=== PATIENT | female | born 1945 | race Caucasian/White ===

== ENCOUNTER 2018-01-04 01:20 | Inpatient (IN) | payer OTHER, SELFPAY ==
[2018-01-04] VITALS (26 sets, daily range): BP systolic 104–172; BP diastolic 44–112; PULSE 62–128; RESP 11–22; TEMP 36–38.3; O2SAT 87–99; BMI 26.6; BMI 30.2
--- NOTE | 2018-01-04 01:31 | DI.RAD.S_ITS ---
PROCEDURE: XR CHEST 1V INDICATIONS: rapid AFib TECHNIQUE: One view of the chest was acquired. COMPARISON: None. FINDINGS: Surgical changes and devices: Surgical clips in the thyroid bed. Lungs and pleura: No pleural effusions or pneumothorax. Lungs are clear. Mediastinum: Mediastinal contours appear normal. Heart size is normal. Bones and chest wall: No suspicious bony lesions. Overlying soft tissues appear unremarkable. IMPRESSION: No acute cardiopulmonary disease. Dictated by: Win Stevenson M.D. on 01/04/2018 at 7:16 Approved by: Win Stevenson M.D. on 01/04/2018 at 7:17
--- NOTE | 2018-01-04 01:37 | PC.NURSE ---
this nurse witness patient giving permission for provider to take a photo with cell phone and text to ortho surgeon.
--- NOTE | 2018-01-04 01:57 | ED_ITS ---
HPI - Extremity Problem General Chief complaint: Extremity Injury, Upper Stated complaint: Pain S/P Wrist Surgery Time Seen by Provider: 01/04/18 01:25 Source: EMS Mode of arrival: EMS Limitations: no limitations History of Present Illness HPI Narrative: 72-year-old female with history of hypertension, hypothyroid, and diverticulosis presents to the emergency department with a chief complaint of a few days of increasing left hand pain. She denies systemic symptoms such as dizziness, lightheadedness or weakness. She denies any fever or chills. Patient had surgery by Dr. Chu at [facility] on December 10 for repair of tendons in her left hand. She had been doing quite well until a few days ago when she started developing increasing pain and now has purulent drainage from a dehisced part of the wound. Patient denies chest pain or shortness of breath. She is not dizzy or lightheaded. She denies any palpitations MD Complaint: extremity pain and extremity swelling Onset (ago): day(s) Pain Consistency: constant Location: left Quality: stabbing and aching Radiation: none Relieving factors: nothing Exacerbating factors: range of motion and palpation Associated symptoms: denies other symptoms Related Data Home Medications Medication Instructions Recorded Confirmed CHOLECALCIFEROL (VITAMIN D3) 400 iu PO #0 04/23/12 (VITAMIN D) POTASSIUM CHLORIDE (KLOR-CON M10) 20 meq PO BIDCC #0 04/23/12 atenolol 50 mg PO BID #0 04/23/12 estradiol [Estrace] 1.5 mg PO QDAY #0 04/23/12 spironolactone [Aldactone] 50 mg PO QDAY #0 04/23/12 Previous Rx's Medication Instructions Recorded azithromycin [Zithromax] 250 mg PO QDAY #6 tab 06/03/17 methylprednisolone 21 tab PO SEE INSTRUCTIONS #1 pac 06/03/17 Allergies Allergy/AdvReac Type Severity Reaction Status Date / Time etodolac [ETODOLAC] Allergy Unknown hives Verified 01/04/18 01:35 BEE STINGS Allergy Unknown Uncoded 01/04/18 01:35 Review of Systems Review of Systems All systems reviewed & are unremarkable except as noted in HPI and below Constitutional Denies chills, Denies fever(s), Denies lethargy and Denies weakness Eyes Denies change in vision, Denies eye discharge, Denies irritation and Denies loss of vision ENT Ears, Nose, Mouth, and Throat: Denies change in voice, Denies neck pain and Denies sore throat Cardiovascular Denies chest pain, Denies irregular heart rhythm, Denies lightheadedness, Denies palpitations, Denies dyspnea, Denies dyspnea on exertion and Denies orthopnea Respiratory Denies cough, Denies dyspnea, Denies dyspnea on exertion and Denies wheezing Gastrointestinal Gastrointestinal: Denies abdominal pain, Denies change in bowel habits, Denies diarrhea, Denies nausea and Denies vomiting Genitourinary Denies hematuria, Denies flank pain, Denies urinary incontinence and Denies urinary urgency Musculoskeletal Denies neck pain Integumentary/Breasts Denies pruritus, Denies erythema, Denies rash, Reports skin pain, Reports skin swelling, Reports sores and Reports wounds Neurologic Denies confusion, Denies loss of vision and Denies weakness Psychiatric Denies anxiety, Denies confusion, Denies depression, Denies homicidal ideation and Denies suicidal ideation Endocrine Denies palpitations Hematologic/Lymphatic Denies easy bruising Allergic/Immunologic Denies wheezing [facility] Social History Smoking Status: Never smoker Exam Narrative Exam Narrative: 72-year-old female appears quite uncomfortable, clutching her left hand Initial Vital Signs Initial Vital Signs: Vital Signs Temperature 98.7 F 01/04/18 01:28 Pulse Rate 107 H 01/04/18 01:28 Respiratory Rate 22 01/04/18 01:28 Blood Pressure 172/112 H 01/04/18 01:28 Pulse Oximetry 99 01/04/18 01:28 Const General: cooperative, well developed, acute distress and anxious Nutritional Appearance: well nourished Orientation: alert, awake, oriented x3 and not confused [facility] Head: normal to inspection Ears: hearing grossly normal bilaterally Nose: external nose normal Face and sinus: normal facial exam Eyes Pupils: PERRL EOM: EOM intact bilaterally Neck Neck: normal visual inspection, trachea midline, No lymphadenopathy, No midline deformity and No JVD Lymphatic: No lymphedema Resp Effort & Inspection: normal respiratory effort, able to speak in complete sentences, no respiratory distress and no use of accessory muscles Auscultation: clear to auscultation bilaterally, no rales, no rhonchi and no wheezes Cardio Rate: tachycardic Rhythm: abnormal rhythm GI Inspection: non-distended Palpation: soft, no hepatosplenomegaly, No guarding, No pulsatile mass and No tender Auscultation: normal bowel sounds Back/Spine/Pelvis Back: No CVA tenderness Cervical Spine: cervical ROM normal and No pain with cervical ROM Thoracic/Lumbar Spine: thoracic and lumbar spine normal to inspection Skin General: erythema, induration and warm Neuro General: alert, oriented x3, gait normal and no focal motor deficits Speech: speech normal Extrem Left upper extremity: hand (Patient has notable erythema and swelling on the dorsum of the left hand overlying the 1st metacarpal. The incision has a small area of dehiscence that is draining purulent fluid which has been cultured and sent to lab. She has tenderness on the dorsum of the hand and on palpation of the palmar schwab) Course Orders Ordered: ED Orders 01/04/18 EKG-12 Lead Routine 01/04/18 01:31 XR chest 1V Stat Wound Culture and Gram Stain Stat 01/04/18 01:55 Blood Culture Stat C-Reactive Protein Quant Stat Complete Blood Count AUTO DIFF Stat Comprehensive Metabolic Panel Stat Erythrocyte Sedimentation Rate Stat Lactate (Lactic Acid) Stat Procalcitonin Stat Troponin I Stat Diltiazem HCl 125 mg/ Dextrose 125 mls @ 5 mls/hr IV TITRATE RIVERA; Protocol Discontinued Medications Diltiazem HCl (Cardizem) 20 mg IV NOW ONE Stop: 01/04/18 01:55 Last Admin: 01/04/18 02:07 Dose: 20 mg Hydromorphone HCl (Dilaudid) 1 mg IV NOW ONE Stop: 01/04/18 02:56 Cefazolin Sodium/Dextrose (Ancef) 1 gm in 50 mls @ 200 mls/hr IV NOW ONE Stop: 01/04/18 02:07 Last Admin: 01/04/18 02:45 Dose: 200 mls/hr Sodium Chloride (Normal Saline 0.9%) 1,000 mls @ 1,000 mls/hr IV BOLUS ONE Stop: 01/04/18 02:52 Last Admin: 01/04/18 02:40 Dose: 1,000 mls/hr Reevaluation(s) Reevaluation #1: Cardizem 10 mg IV push resulting in conversion of rapid AFib to a sinus rhythm in the 90s Reevaluation #2: While on the phone attempting to admit the patient to the floor patient started creeping back up into 120 the 130s, decision to place patient in the intensive care for the duration of the evening with a Cardizem drip at 5 Consultations Consultation #1: Call to Orthopedics soon after patient's arrival and there is quick agreement that the patient will need to return to the operating room. They request NPO status, Ancef and admission to hospitalist given new onset of atrial fibrillation Consultation #2: Dr. Gustafson happy to accept Time: 02:55 Vital Signs - 8 hr 01/04/18 01:28 Temperature 98.7 F Pulse Rate 107 H Respiratory Rate 22 Blood Pressure 172/112 H Pulse Oximetry 99 MDM - Extremity (Nontraumatic) Lab Data Attestation: I reviewed the patient's lab results. Result diagrams: 01/04/18 01:55 01/04/18 01:55 Lab Results 01/04/18 01/04/18 01/04/18 Range/Units 01:55 01:55 01:55 WBC 10.6 (4.5-11.0) X10^3/uL RBC 4.26 (4.0-5.2) X10^6/uL Hgb 13.5 (12.0-16.0) g/dL Hct 39.7 (36-46) % MCV 93.2 (80-100) fL MCH 31.7 (26-34) PG MCHC 34.1 (30-36) % RDW 12.0 (11.6-14.8) % Plt Count 279 (150-400) X10^3/uL Neut % (Auto) 53.5 (50-75) % Lymph % (Auto) 33.1 (25-40) % [place] % (Auto) 9.6 (3-14) % Eos % (Auto) 2.4 (2-4) % Baso % (Auto) 1.4 (0-2) % Neut # (Auto) 5700 (8019-3851) /uL ESR 79 H (0-20) MM/HR Sodium (137-145) mmol/L Potassium (3.4-5.1) mmol/L Chloride (98-107) mmol/L Carbon Dioxide (22-32) mmol/L BUN (7-17) mg/dL Creatinine (0.52-1.04) mg/dL Estimated GFR (>60) mL/min BUN/Creatinine Ratio (6-22) Glucose (80-110) mg/dL Lactate 2.6 H (0.7-2.1) mmol/L Calcium (8.4-10.2) mg/dL Total Bilirubin (0.2-1.3) mg/dL AST (14-36) IU/L ALT (9-52) IU/L Alkaline Phosphatase (38-126) U/L Troponin I (0.01-0.034) ng/mL C-Reactive Protein (<1.0) mg/dL Total Protein (6.3-8.2) g/dL Albumin (3.5-5.0) g/dL Globulin (1.7-4.1) g/dL Albumin/Globulin Ratio (1.0-2.8) Procalcitonin < 0.05 (<0.5) ng/mL 01/04/18 01/04/18 Range/Units 01:55 01:55 WBC (4.5-11.0) X10^3/uL RBC (4.0-5.2) X10^6/uL Hgb (12.0-16.0) g/dL Hct (36-46) % MCV (80-100) fL MCH (26-34) PG MCHC (30-36) % RDW (11.6-14.8) % Plt Count (150-400) X10^3/uL Neut % (Auto) (50-75) % Lymph % (Auto) (25-40) % [place] % (Auto) (3-14) % Eos % (Auto) (2-4) % Baso % (Auto) (0-2) % Neut # (Auto) (7467-2723) /uL ESR (0-20) MM/HR Sodium 139 (137-145) mmol/L Potassium 3.8 (3.4-5.1) mmol/L Chloride 98 (98-107) mmol/L Carbon Dioxide 30 (22-32) mmol/L BUN 14 (7-17) mg/dL Creatinine 0.80 (0.52-1.04) mg/dL Estimated GFR > 60.0 (>60) mL/min BUN/Creatinine Ratio 17.5 (6-22) Glucose 100 (80-110) mg/dL Lactate (0.7-2.1) mmol/L Calcium 9.3 (8.4-10.2) mg/dL Total Bilirubin 0.7 (0.2-1.3) mg/dL AST 19 (14-36) IU/L ALT 21 (9-52) IU/L Alkaline Phosphatase 68 (38-126) U/L Troponin I < 0.012 (0.01-0.034) ng/mL C-Reactive Protein 8.6 H (<1.0) mg/dL Total Protein 7.8 (6.3-8.2) g/dL Albumin 4.2 (3.5-5.0) g/dL Globulin 3.6 (1.7-4.1) g/dL Albumin/Globulin Ratio 1.2 (1.0-2.8) Procalcitonin (<0.5) ng/mL ECG Data Attestation EKG: I personally reviewed and interpreted this ECG as follows: Prior ECG tracings: not available for review Interpretation: EKG1: Afib w/RVR at 127. No ischemia. EKG2: sinus arrhythmia at 110. Discharge Plan Departure Patient Disposition: Admitted As Inpatient Clinical Impression: Atrial fibrillation with rapid ventricular response, Infected surgical wound
[2018-01-04] MEDS: dilTIAZem 25 MG/5 ML SDV 20 MG IV (02:07)
[2018-01-04 02:31] LABS: Add Manual Diff / Slide Review NO; Basophils Percent Auto 1.4 % (0-2); Eosinophils Percent Auto 2.4 % (2-4); Hematocrit 39.7 % (36-46); Hemoglobin 13.5 g/dL (12.0-16.0); Lymphocytes Percent Auto 33.1 % (25-40); Mean Corpuscular HGB Conc 34.1 % (30-36); Mean Corpuscular Hemoglobin 31.7 PG (26-34); Mean Corpuscular Volume 93.2 fL (80-100); Monocytes Percent Auto 9.6 % (3-14); Neutrophils Absolute Auto 5700 /uL (3000-5900); Neutrophils Percent Auto 53.5 % (50-75); Platelet Count 279 X10^3/uL (150-400); Red Blood Cell Count 4.26 X10^6/uL (4.0-5.2); White Blood Cell Count 10.6 X10^3/uL (4.5-11.0)
[2018-01-04 02:32] LABS: Alanine Aminotransferase 21 IU/L (9-52); Albumin 4.2 g/dL (3.5-5.0); Albumin Globulin Ratio 1.2 (1.0-2.8); Alkaline Phosphatase 68 U/L (38-126); Aspartate Aminotransferase 19 IU/L (14-36); BUN Creatinine Ratio 17.5 (6-22); Bilirubin Total 0.7 mg/dL (0.2-1.3); Blood Urea Nitrogen 14 mg/dL (7-17); Calcium 9.3 mg/dL (8.4-10.2); Carbon Dioxide 30 mmol/L (22-32); Chloride 98 mmol/L (98-107); Estimated Glomerular Filt Rate > 60.0 mL/min (>60); Globulin 3.6 g/dL (1.7-4.1); Glucose 100 mg/dL (80-110); HEMOLYSIS < 15 (0-50); Potassium 3.8 mmol/L (3.4-5.1); Sodium 139 mmol/L (137-145); Total Protein 7.8 g/dL (6.3-8.2)
[2018-01-04 02:34] LABS: Lactate (Lactic Acid) 2.6 mmol/L (0.7-2.1)
[2018-01-04 02:36] LABS: C-Reactive Protein Quant 8.6 mg/dL (<1.0)
[2018-01-04] MEDS: SODIUM CHLORIDE 0.9% 1,000 ML 1000 ML IV (02:40)
[2018-01-04 02:45] LABS: Troponin I < 0.012 ng/mL (0.01-0.034)
[2018-01-04] MEDS: CEFAZOLIN 1 GM/50 ML FROZ.PIGGY IV ×3 (02:45→16:43)
[2018-01-04 02:46] LABS: Erythrocyte Sedimentation Rate 79 MM/HR (0-20)
[2018-01-04 02:51] LABS: Procalcitonin < 0.05 ng/mL (<0.5)
[2018-01-04] MEDS: HYDROMORPHONE 1 MG INJ IV (03:03)
[2018-01-04] MEDS: dilTIAZem 125 MG in DEXTROSE 5 % IN WATER 100 ML IV (03:40)
[2018-01-04] MEDS: SODIUM CHLORIDE 0.9% 1,000 ML 125 ML IV (04:54)
[2018-01-04 06:10] LABS: Reflexed Lactate in 2 Hours Y
[2018-01-04 06:24] LABS: Lactate 2HR (Lactic Acid Rflx) 0.7 mmol/L (0.7-2.1)
[2018-01-04] MEDS: MORPHINE 2 MG/ML INJ 1 MG IV (09:15)
--- NOTE | 2018-01-04 10:11 | PM.HP.1 ---
History of Present Illness Date Patient Seen: 01/04/18 Time Patient Seen: 10:15 Chief complaint: Pain S/P Wrist Surgery Narrative: Patient is a 72-year-old female admitted to the to the emergency room through the emergency room last evening with increased illness severe infection and recent surgery site with markedly elevated CRP and sed rate. Patient found abnormal white count negative procalcitonin. Patient was also found to be in intermittent atrial fibrillation. While she had been gradually feeling worse since her surgery she had had not had any chest pain significant shortness of breath PND orthopnea or sense of palpitations. She has no past history of atrial fibrillation or significant coronary artery disease. Does have a history of elevated lipids which she has been resistant to taking medications for. Overall prior to this episode been healthy active woman who is young for her stated age. In and is here this morning noted to be slightly confused disoriented can't remember medications. Still in irregular heart rhythm with rate up to 108 responding well to diltiazem drip and maintain her blood pressure. Left hand where her surgery is which she is unable to remember exactly what surgery happened looks as though this was joint procedure on her left hand quite reddened purulent extremely tender mobile decreased sensations at the tips of fingers Patient History Family & Social History Social History: household members none Prior Living Arrangements House Safety & Behavioral: Feels Safe in Current Yes Environment Been Physically Hurt or No Threatened By a Person Suicidal Ideation Description None Tobacco & Substance use: Smoking Status Never smoker alcohol intake current alcohol intake frequency a few times a week Substance Use Type does not use Meds Home Medications Medication Instructions Recorded Confirmed Type CHOLECALCIFEROL (VITAMIN D3) 400 iu PO #0 04/23/12 History (VITAMIN D) POTASSIUM CHLORIDE (KLOR-CON M10) 20 meq PO BIDCC #0 04/23/12 History atenolol 50 mg PO BID #0 04/23/12 History estradiol [Estrace] 1.5 mg PO QDAY #0 04/23/12 History spironolactone [Aldactone] 50 mg PO QDAY #0 04/23/12 History azithromycin [Zithromax] 250 mg PO QDAY #6 tab 06/03/17 Rx methylprednisolone 21 tab PO SEE INSTRUCTIONS #1 pac 06/03/17 Rx Allergies Allergy/AdvReac Type Severity Reaction Status Date / Time etodolac [ETODOLAC] Allergy Unknown hives Verified 01/04/18 01:35 BEE STINGS Allergy Unknown Uncoded 01/04/18 01:35 Review of Systems Review of Systems Patient has her routine complains of weakness feeling achy sore all over confused disoriented and in severe pain in her left hand. No visual change or difficulty swallowing No shortness of breath PND cough significant edema No chest pain a sense of palpitations significant edema PND had dyspnea on exertion or past history of arrhythmia Abdomen nontender no hepatosplenomegaly or mass no nausea vomiting or diarrhea she does no history of urinary frequency burning dysuria Musculoskeletal left hand at incision site with purulence redness markedly decreased range of motion Neuro shows patient to be slightly confused and disoriented but moving things symmetrically speech is clear hematologic patient denies any bleeding bruising melena Exam Vital Signs (past 8 hours): - 01/04/18 03:38 01/04/18 03:40 01/04/18 04:00 Temperature 101 F H Pulse Rate 123 H 128 H Respiratory Rate 19 Blood Pressure 125/61 H 148/67 H 125/61 H Pulse Oximetry 94 01/04/18 05:00 01/04/18 06:00 01/04/18 07:52 Temperature 97.9 F Pulse Rate 106 H 94 H 108 H Respiratory Rate 17 18 16 Blood Pressure 122/59 H 109/66 141/77 H Pulse Oximetry 98 Oxygen Delivery Method Room Air Narrative Exam Narrative: PERRLA EOMs intact Neck without mass or adenopathy Lungs clear to auscultation percussion Cardiovascular exam shows no murmur no S3 slightly irregular with rate at about 108 consistent with AFib. No significant dependent edema Abdomen nontender no hepatosplenomegaly mass rebound or guarding Back without any soreness bruising CVA tenderness Skin shows definite cellulitis infection in the skin over her left thumb with a P MCP joint do significant significantly decreased range of motion and very tender Neuro is intact and symmetrical to sensory and motor speech is clear patient is a little confused and disoriented which is different than her baseline but symmetrically so Objective Labs Result Diagrams: 01/04/18 01:55 01/04/18 01:55 Labs: Laboratory Results - last 24 hr 01/04/18 01/04/18 01/04/18 01:55 01:55 01:55 WBC 10.6 RBC 4.26 Hgb 13.5 Hct 39.7 MCV 93.2 MCH 31.7 MCHC 34.1 RDW 12.0 Plt Count 279 Neut % (Auto) 53.5 Lymph % (Auto) 33.1 [place] % (Auto) 9.6 Eos % (Auto) 2.4 Baso % (Auto) 1.4 Neut # (Auto) 5700 ESR 79 H Sodium Potassium Chloride Carbon Dioxide BUN Creatinine Estimated GFR BUN/Creatinine Ratio Glucose Lactate 2.6 H Calcium Total Bilirubin AST ALT Alkaline Phosphatase Troponin I C-Reactive Protein Total Protein Albumin Globulin Albumin/Globulin Ratio Procalcitonin < 0.05 Nasal Screen MRSA (PCR) 01/04/18 01/04/18 01/04/18 01:55 01:55 03:30 WBC RBC Hgb Hct MCV MCH MCHC RDW Plt Count Neut % (Auto) Lymph % (Auto) [place] % (Auto) Eos % (Auto) Baso % (Auto) Neut # (Auto) ESR Sodium 139 Potassium 3.8 Chloride 98 Carbon Dioxide 30 BUN 14 Creatinine 0.80 Estimated GFR > 60.0 BUN/Creatinine Ratio 17.5 Glucose 100 Lactate Calcium 9.3 Total Bilirubin 0.7 AST 19 ALT 21 Alkaline Phosphatase 68 Troponin I < 0.012 C-Reactive Protein 8.6 H Total Protein 7.8 Albumin 4.2 Globulin 3.6 Albumin/Globulin Ratio 1.2 Procalcitonin Nasal Screen MRSA (PCR) Negative for mrsa 01/04/18 05:30 WBC RBC Hgb Hct MCV MCH MCHC RDW Plt Count Neut % (Auto) Lymph % (Auto) [place] % (Auto) Eos % (Auto) Baso % (Auto) Neut # (Auto) ESR Sodium Potassium Chloride Carbon Dioxide BUN Creatinine Estimated GFR BUN/Creatinine Ratio Glucose Lactate 0.7 Calcium Total Bilirubin AST ALT Alkaline Phosphatase Troponin I C-Reactive Protein Total Protein Albumin Globulin Albumin/Globulin Ratio Procalcitonin Nasal Screen MRSA (PCR) Assessment & Plan Plan: Assessment/Plan Narrative: Assessment 1. Most probable infection at surgery site for some procedure. Patient has had solution several days of worsening pain redness and becoming increasingly confused. White count is only 10 procalcitonin negative but sed rate is is near 40 and CRP is 9. Wound looks severely complicated by infection. Orthopedic surgeon is taking patient to surgery to address this. Will continue on antibiotics Assessment 2. New onset atrial fibrillation with unclear etiology. Cardiac enzymes negative and EKG shows no ST or acute ischemic changes. No past history of this. Patient is probably in this because of toxicity of her infection as noted above. Has good rate control blood pressure control and oxygen saturations on current diltiazem for rhythm and rate control. Her fib has been intermittent since her admission here. Will see how things look after her surgical therapy for her hand and continue current rate control meds Assessment 3. Hypertension patient's chronic hypertension meds reviewed will see how her pressure looks and which she needs after surgical procedure and will continue monitor blood pressure closely. Assessment 4. History of hyperlipidemia patient has been resistant to medications but is fairly elevated numbers for that need to be addressed for long-term health maintenance Assessment 5. Patient has had past history of hypokalemia is not hypokalemic now so will not reintroduce potassium replacement on unless we see that evolve over her subsequent follow-up labs. Quality VTE Deep Vein Thrombosis/Pulmonary Embolism Present on Admission: No
[2018-01-04] MEDS: LACTATED RINGERS 1,000 ML 42 ML IV (10:15)
--- NOTE | 2018-01-04 10:19 | PC.NURSE ---
Addendum entered by Mateo Argueta R.N. 01/04/18 14:20: Updated son, Ahmet, via telephone per pt request. Administered PO meds including metoprolol as ordered. Dilt gtt weaned to off. Pt currently SR 68. Intermittently dozing. States pain well controlled as long as she doesn't move L Hand. Original Note: Addendum entered by Mateo Argueta R.N. 01/04/18 12:52: Rec'd pt from PACU to [id number]. AO x3 but drowsy. Able to move fingers and thumb of L Hand. Reports soreness. Cap refill less than 3 sec. Gauze dsg to L hand is CDI. Per report, murray drain to site. Bradypneic with sleep 10-12 RR and associated desat to 87% on RA. Pt is easily rousable to verbal stimuli. Applied O2 at 2L for SPO2 97%. Will wean as able. Rhythm is intermittently A fib CVR and SR with bigeminal or frequent PACs. Dilt gtt continues to infuse at 5 mg/hr. Will give PO meds when available. Care ongoing. Original Note: Bedside report to JOHNNY Bermeo. Dr. Gustafson also at bedside to assess pt. Pt left to pre op 1015 with RN and dilt gtt infusing at 5mg/hr and stable VS. Pt requested I update her son, Ahmet, via telephone. Called and left voice message to return phone call.
--- NOTE | 2018-01-04 10:21 | CM.DANOTE ---
Patient is a 72 year old female who was admitted on 01/04/18 for Pain Wrist Surg. Pt has [facility] for insurance and her PCP is Dr. Gustafson. EMR was reviewed. Per MD, pt had recent surgery on her wrist at [facility] and per Consult is now recommending further surgical procedure. Per RN, pt currently NPO for likely surgery today. SW met bedside with pt and explained role and pt confirmed that she lives at home in [place] alone and has local supportive friends who can assist if needed. Pt is Independent at baseline and drives and denies any hx of HH or SNF. Pt states she does not have DPOA and is currently not interested in DPOA pwk. Pt does not anticipate any SW needs at d/c and preference is to d/c home with supportive friends to assist if needed when medically stable. Plan: SW to follow after surgery to determine likely d/c home when medically stable and any further identified discharge planning needs. LIAT Gregorio Discharge Planning/Care Management CM Discharge Assessment Start: 01/04/18 10:20 Freq: Status: Active Protocol: Document 01/04/18 10:20 BF (Rec: 01/04/18 10:21 [id number]) Discharge Planning Assessment Assigned [employer] History Provided By Patient Has Patient been admitted in last 30 No days? Is this patient on Medicare? Yes Is the admit diagnosis the same? Yes Prior Living Arrangements House Household Members none Type of transporation used prior to Drives own vehicle admit Independent with ADL's Yes Is patient alert and oriented? Yes Needs Assistance With Home Chores / Shopping Caregiver for Another No Referrals Initiated None needed Comment To follow after surgery to better determine d/c planning needs Discharge Plan Home Transportation Arrangement supportive friends can assist in transport Review Status In Process Next Review Type Discharge Review
--- NOTE | 2018-01-04 11:07 | PM.CN ---
History of Present Illness Date Patient Seen: 01/04/18 Time Patient Seen: 11:07 Chief complaint: Pain S/P Wrist Surgery Reason for consult: left hand post op infection Requesting provider: Wang Foster Narrative: Ms. Holt had left hand surgery [address] Chaudhary. She has been having redness and swelling for about 1 week with mild drainage. Started 2 days ago her drainage increased to copious amount. She presented to the ED and orthopedic service was consulted. [facility] Social History household members: none Smoking Status: Never smoker alcohol intake: current Meds Home Medications Medication Instructions Recorded Confirmed Type potassium chloride 20 meq PO BID #0 04/23/12 01/04/18 History spironolactone [Aldactone] 50 mg PO QDAY #0 04/23/12 History citalopram DAILY 01/04/18 History estradiol 0.5 tab PO DAILY 01/04/18 01/04/18 History hydroxyzine pamoate 1 - 2 cap PO DAILY 01/04/18 01/04/18 History levothyroxine 1 tab PO DAILY 01/04/18 01/04/18 History metoprolol tartrate 1 tab PO BID 01/04/18 01/04/18 History mometasone 1 applic TOPICAL BID 01/04/18 01/04/18 History oxycodone-acetaminophen 1 - 2 tab PO Q4-6H PRN 01/04/18 01/04/18 History Allergies Allergy/AdvReac Type Severity Reaction Status Date / Time etodolac [ETODOLAC] Allergy Unknown hives Verified 01/04/18 01:35 BEE STINGS Allergy Unknown Uncoded 01/04/18 01:35 Review of Systems Review of Systems All systems reviewed & are unremarkable except as noted in HPI and below Exam Vital Signs (past 8 hours): - 01/04/18 03:38 01/04/18 03:40 01/04/18 04:00 Temperature 101 F H Pulse Rate 123 H 128 H Respiratory Rate 19 Blood Pressure 125/61 H 148/67 H 125/61 H Pulse Oximetry 94 01/04/18 05:00 01/04/18 06:00 01/04/18 07:52 Temperature 97.9 F Pulse Rate 106 H 94 H 108 H Respiratory Rate 17 18 16 Blood Pressure 122/59 H 109/66 141/77 H Pulse Oximetry 98 01/04/18 10:22 01/04/18 10:30 01/04/18 10:31 Temperature 99.4 F Pulse Rate 94 H 88 Respiratory Rate 15 15 Blood Pressure 132/80 H 115/70 Pulse Oximetry 97 88 L 93 01/04/18 10:40 Temperature Pulse Rate 88 Respiratory Rate 15 Blood Pressure 127/71 H Pulse Oximetry 99 Oxygen Delivery Method Nasal Cannula Oxygen Flow Rate 2 Extrem Other: left wrist incision with erythema, yellow purulent drainage through entire incision, pain with movement and palpation of the CMC and IP joint of the left thumb. Objective Labs Result Diagrams: 01/04/18 01:55 01/04/18 01:55 Labs: Laboratory Results - last 24 hr 01/04/18 01/04/18 01/04/18 01:55 01:55 01:55 WBC 10.6 RBC 4.26 Hgb 13.5 Hct 39.7 MCV 93.2 MCH 31.7 MCHC 34.1 RDW 12.0 Plt Count 279 Neut % (Auto) 53.5 Lymph % (Auto) 33.1 Davie % (Auto) 9.6 Eos % (Auto) 2.4 Baso % (Auto) 1.4 Neut # (Auto) 5700 ESR 79 H Sodium Potassium Chloride Carbon Dioxide BUN Creatinine Estimated GFR BUN/Creatinine Ratio Glucose Lactate 2.6 H Calcium Total Bilirubin AST ALT Alkaline Phosphatase Troponin I C-Reactive Protein Total Protein Albumin Globulin Albumin/Globulin Ratio Procalcitonin < 0.05 Nasal Screen MRSA (PCR) 01/04/18 01/04/18 01/04/18 01:55 01:55 03:30 WBC RBC Hgb Hct MCV MCH MCHC RDW Plt Count Neut % (Auto) Lymph % (Auto) Davie % (Auto) Eos % (Auto) Baso % (Auto) Neut # (Auto) ESR Sodium 139 Potassium 3.8 Chloride 98 Carbon Dioxide 30 BUN 14 Creatinine 0.80 Estimated GFR > 60.0 BUN/Creatinine Ratio 17.5 Glucose 100 Lactate Calcium 9.3 Total Bilirubin 0.7 AST 19 ALT 21 Alkaline Phosphatase 68 Troponin I < 0.012 C-Reactive Protein 8.6 H Total Protein 7.8 Albumin 4.2 Globulin 3.6 Albumin/Globulin Ratio 1.2 Procalcitonin Nasal Screen MRSA (PCR) Negative for mrsa 01/04/18 05:30 WBC RBC Hgb Hct MCV MCH MCHC RDW Plt Count Neut % (Auto) Lymph % (Auto) Davie % (Auto) Eos % (Auto) Baso % (Auto) Neut # (Auto) ESR Sodium Potassium Chloride Carbon Dioxide BUN Creatinine Estimated GFR BUN/Creatinine Ratio Glucose Lactate 0.7 Calcium Total Bilirubin AST ALT Alkaline Phosphatase Troponin I C-Reactive Protein Total Protein Albumin Globulin Albumin/Globulin Ratio Procalcitonin Nasal Screen MRSA (PCR) Assessment & Plan Plan: Assessment/Plan Narrative: Left hand post op infection with purulent drainage. After inform consent was obtained, patient was taken to the OR for emergent incision and drainage and irrigation and debridement. Patient was admitted to ICU for newly onset a-fib and managed by medicine team. Time Spent With Patient Time with patient: 25 - 35 minutes
--- NOTE | 2018-01-04 11:28 | PM.PROC.1 ---
Procedures Date/Time Date of procedure: 01/04/18 Time of procedure: 10:40 General Procedure description: Pre op axillary brachial plexus nerve block on left arm for post-op pain control after left hand debridement with Dr. Kidd. Risks and benefits discussed with patient. Arm prepped with chlorhexidine. ASA monitoring applied. Sedation with 50mcg fentanyl and 1mg versed. O2 via nasal cannula. 2% lidocaine skin wheal made. Using 50mm Pajuck 21 ga needle under ultrasound guidance, needle tip was directed near axillary artery, primarily targeting posterior (radial) and lateral (median) nerve bundles for coverage of thumb and back of hand. Assessment of hand block distribution was made difficult by patient confusion.
[2018-01-04] MEDS: BUPIVACAINE 0.25% (PF) 30 ML VIAL INJ (11:40)
--- NOTE | 2018-01-04 11:48 | PM.OP.1 ---
Operative Date/Time/Diagnoses Date of procedure: 01/04/18 Time of procedure: 11:48 Pre-op diagnosis: left hand post operative wound infection Post-op diagnosis: same Procedure & Clinicians Procedure: 1. Left hand incision and drainage. 2. Left hand irrigation and debridement of skin, muscle and ligament and extensor compartment. Same procedure as scheduled: Yes Indications: Patient is 2 weeks s/p left hand tendon reconsction surgery with Dr. Chaudhary. She has been having mild drainage for 1 week and copies purulent drainage for the last two days. Patient was evaluated and after inform consent was obtained, she was taken to the OR emergently for I&D. Surgeon: Gavin Kidd Click Yes if Unassisted: Yes Anesthesia Type: General and Peripheral nerve block Operative Notes Closure Type: primary Specimen(s): other Estimated Blood Loss (mL): 5 Blood products transfused: none Tourniquet time (min): 18 Procedure in detail: Patient was seen in the preoperative area. Informed consent was obtained and placed in the chart. Patient was taken to the operating room. Preoperative antibiotic was given as scheduled doses since the ER admission. Patient was given a peripheral block as well as general anesthesia. Patient's left arm was prepped and draped in sterile fashion. Time-out was performed at this time. A tourniquet was placed on patient's left upper arm prior to prepping. The left arm was elevated for 30 sec and tourniquet was inflated to 250 mm Hg. A 10 blade was used to open patient's previous incision. Copious amount of purulent material was able to be expressed from the wound. Culture was taken and was sent to the lab and using a small rongeur and curette debridement was performed by removing any unhealthy tissue. After debridement was completed the extensor compartment was explored using the small scissor there were small amount of purulent material inside the extensor compartment irrigation was performed inside the extensor compartment. An additional expressing of the extensor compartment from the wrist distally did not yield any additional infected fluid. The wound was then irrigated extensively with sterile normal saline. A Karthikeyan drain was then placed into the wound after the irrigation was completed the skin edges was trimmed using a 10 blade to free any unhealthy appearing skin tissue. The rongeur was used to remove any unhealthy appearing muscles and as well as ligaments and/or tendon sheath inside the wound. The sutures that was placed during the prior repair was left alone. After the Karthikeyan drain was placed the skin was then closed with 3-0 nylon suture in interrupted fashion. The skin incision was not closed in a watertight fashion on purpose to allow additional draining. The wound was dressed with xeroform and sterile gauze. Patient was woken up without any difficulty. Patient was transferred to recovery room in stable condition. Complications: none Condition: stable Disposition: Acute Care
--- NOTE | 2018-01-04 13:05 | PT.IPTN ---
Surgery Performed Operation Date: 01/04/18 10:30 Actual Procedures p Incision and Drainage Wound/Extremity(Left) - Gavin Kidd MD Physical Therapy Treatment Note M3 PT-IP Subjective Start: 01/04/18 15:22 Freq: Status: Active Protocol: Document 01/04/18 13:05 [facility] (Rec: 01/04/18 15:24 [facility] [id number]) Subjective Physical Therapy Visit Type Type Cancellation Notes Pt not ready for Pt evaluation at this time. She is somnolent, on IV drip for HR recovering from surgery. Plan to evaluate pt tomorrow when more appropriate for PT evaluation.
[2018-01-04] MEDS: CITALOPRAM 20 MG TABLET PO (13:23)
[2018-01-04] MEDS: METOPROLOL 50 MG TABLET PO ×2 (13:23→21:07)
[2018-01-04] MEDS: ESTRADIOL 1 MG TABLET PO (13:23)
[2018-01-04] MEDS: LEVOTHYROXINE 150 MCG TABLET PO (13:23)
[2018-01-04] MEDS: OXYCODONE/ACETAMINOPHEN 5/325 TABLET 1 TAB PO (13:35)
--- NOTE | 2018-01-04 21:15 | PC.NURSE ---
Pt with mild confusion. Making statements such as, when are they going to do my surgery? Pt also thinking that she has been here for multiple days. Educated to treatment plan. Pt reports 2 of 10 pain to left wrist. Shadow drainage beginning to appear on drsg. Monitor. Ice pack provided. Call light in reach.
[2018-01-05 00:33] LABS: Acinetobacter baumannii Not Detected (Not Detect); Enterobacteriaceae species Not Detected (Not Detect); Enterococcus species Not Detected (Not Detect); Listeria monocytogenes Not Detected (Not Detect); Methicillin-resistant gene Not Detected (Not Detect); Staphylococcus species Detected (Not Detect); Streptococcus agalactiae (Gr B Not Detected (Not Detect); Streptococcus pneumonia Not Detected (Not Detect); Streptococcus pyogenes (Gr A) Not Detected (Not Detect); Streptococcus species Not Detected (Not Detect)
[2018-01-05 00:34] LABS: Candida albicans Not Detected (Not Detect); Candida glabrata Not Detected (Not Detect); Candida krusei Not Detected (Not Detect); Candida parapsilosis Not Detected (Not Detect); Candida tropicalis Not Detected (Not Detect); E. coli Not Detected (Not Detect); Enterobacter cloacae complex Not Detected (Not Detect); Haemophilus influenzae Not Detected (Not Detect); Neisseria meningitidis Not Detected (Not Detect); Proteus species Not Detected (Not Detect); Pseudomonas aeruginosa Not Detected (Not Detect); Serratia marcescens Not Detected (Not Detect)
[2018-01-05] MEDS: OXYCODONE IR 5 MG TABLET PO ×2 (00:49→16:01)
[2018-01-05] MEDS: CEFAZOLIN 1 GM/50 ML FROZ.PIGGY IV ×3 (01:48→17:06)
[2018-01-05] MEDS: SODIUM CHLORIDE 0.9% FLUSH 10 ML IV ×3 (02:00→21:15)
--- NOTE | 2018-01-05 04:00 | PC.NURSE ---
[id number] Pt awakened for scheduled antibiotic. Pt need IV restart and was anxious during procedure. Medicated for pain with po med for L wrist pain 09/30. Pt has L arm elevated on pillows and ice reapplied. Assessment completed. Pt has some difficulty remembering terms she wishes to express. Pt had some concerns about receiving her home medications, but this RN explained hospital pharmacy would have her home medications and we would be giving them to her.
[2018-01-05 06:24] VITALS: BP 140/75; PULSE 77; RESP 15; TEMP 37; O2SAT 96
--- NOTE | 2018-01-05 06:29 | PC.NURSE ---
0615 Pt states pain L hand at 08/02. Pt declines offer of analgesia. Pt OOB with 2 person assist to BSC. Pt steady on feet and assisted back to bed. Fingers L hand swollen, but pt reports decreased swelling since admission. Dressing dry and intact. Pt placed on contact isolation during night for staph species culture in one blood culture bottle. Dr. Gustafson made aware, please see documentation of HCP entry. Pt much less anxious this am and spirits are improved.
--- NOTE | 2018-01-05 08:53 | P.PN_ITS ---
Subjective Date Patient Seen: 01/05/18 Time Patient Seen: 08:47 Interval history: Patient evaluated 2 this morning following are her surgery yesterday afternoon. She has had resolution of her fibrillation at this point no shortness of breath chest pain sensation of palpitation shortness of breath oxygenation is good. One of her blood cultures drawn initially has gram- positive cocci but not definitively found yet and her symptoms are much improved. No fever no chills no purulence. Surgical procedure done by Dr. Evans remote a very large amount of purulent information and inflamed material and also debrided tissue requiring that. Patient feels much better today slightly decreased sensation in fingertips but can move things less pain again no fevers. Will probably do wound care today keep on IV antibiotics until we get sensitivities on her blood culture and continue with the Ancef at this point given her and significant improvement. Exam Vital Signs (past 8 hours): - 01/05/18 06:24 Temperature 98.6 F Pulse Rate 77 Respiratory Rate 15 Blood Pressure 140/75 H Pulse Oximetry 96 Oxygen Delivery Method Nasal Cannula Oxygen Flow Rate 2 Narrative Exam Narrative: Patient alert oriented much more clear of mind then yesterday prior to her procedure. Vision is good No neck pain or mass No shortness of breath lungs clear to auscultation percussion Cardiovascular shows regular rate and rhythm without murmur S3 no fib or other arrhythmia GI shows abdomen nontender no masses no hepatosplenomegaly Back without abnormality Skin no lesions except for the area of her involve surgery Extremities symmetrical intact no edema Neuro is shows sensory motor intact speech clear cognitive improved Objective Labs Result Diagrams: 01/04/18 01:55 01/04/18 01:55 Labs: Laboratory Results - last 24 hr 01/04/18 01:55 A. baumannii (PCR) Not detected Lory albicans (PCR) Not detected C. glabrata (PCR) Not detected C. krusei (PCR) Not detected C. parapsilosis (PCR) Not detected C. tropicalis (PCR) Not detected Enterobacteriac sp PCR Not detected E. cloacae complex PCR Not detected Enterococcus sp PCR Not detected E. coli (PCR) Not detected H. influenzae (PCR) Not detected Klebsiella oxytoca PCR Not detected Klebsiella pneumoniae Not detected List. monocytogenes PCR Not detected N. meningitidis (PCR) Not detected Proteus species (PCR) Not detected Serratia marcescens PCR Not detected Staphylococcus sp PCR Detected H Staph aureus (PCR) Not detected mecA-Methicil Res Gene Not detected Streptococcus sp PCR Not detected Group A Strep (PCR) Not detected Strep agalactiae (PCR) Not detected Strep pneumoniae (PCR) Not detected P. aeruginosa (PCR) Not detected Shanna/B-Vanco Res Genes Not Reportable KPC-Carbap Res Gene PCR Not Reportable Assessment & Plan Plan: Assessment/Plan Narrative: Assessment 1. Probable sepsis awaiting blood culture identification secondary to infected surgical site for the graft or thumb tendon procedure 2 weeks ago. Patient feeling much better today procedure per Dr. Evans performed yesterday afternoon. Will continue with antibiotics and wound care at this point. Assessment 2. Atrial fibrillation that has resolved of. That is seems to have been a response to her toxic situation and she had no sign of that through the night. Blood pressure is good and patient is asymptomatic we will continue with the current medication regimen Assessment 3. Hypo thyroid this seems stable at this point will continue on current regimen and medications As assessment 4. Patient's wound Care will need skilled replacement and monitoring of drain through the day today. Assessment 5. Hypertension appears in good control at this point will continue current meds Assessment 6. Depression stable continue on current medication Quality VTE Deep Vein Thrombosis/Pulmonary Embolism Present on Admission: No
[2018-01-05 09:05] VITALS: BP 150/82; PULSE 85; RESP 20; TEMP 36.6; O2SAT 98
[2018-01-05] MEDS: ESTRADIOL 1 MG TABLET PO (09:21)
[2018-01-05] MEDS: hydrOXYzine pamoate 25 MG CAPSULE PO ×2 (09:21→13:36)
[2018-01-05] MEDS: LEVOTHYROXINE 150 MCG TABLET PO (09:21)
[2018-01-05] MEDS: CITALOPRAM 20 MG TABLET PO (09:21)
[2018-01-05] MEDS: METOPROLOL 50 MG TABLET PO ×2 (09:21→21:15)
[2018-01-05] MEDS: ACETAMINOPHEN 325 MG TABLET 650 MG PO ×4 (09:22→21:15)
--- NOTE | 2018-01-05 09:25 | PT.IIE ---
Surgery Performed Operation Date: 01/04/18 10:30 Actual Procedures p Incision and Drainage Wound/Extremity(Left) - Gavin Kidd MD Surgical History (Last Updated 01/04/18 @ 11:10 by Mateo Argueta RN) S/P tendon repair (Acute) Medical History (Last Reviewed 01/04/18 @ 11:08 by Gavin Kidd MD) Diverticulosis (Acute) Hyperlipemia (Acute) Hypertension (Acute) Hypokalemia (Acute) Hypothyroidism (Acute) Physical Therapy Inpatient Evaluation/Re-Eval Medical Review Prior Functional Status Medical History Reviewed Yes Diet/Fluid Consistency Regular Communication no known deficits Mobility and Gait ind to mod ind with a SPC, but hasn't had to use the cane in a long time. Activities of Daily Living and IADL's ind Prior Functional Level (Other details) Pt has been getting help from friends/neighbors since the initial surgery but is usually ind with everything. Social History Household Members none Living Arrangements House Number of Floors (Floors) One Floor Number of Stairs To Enter/Railing? 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 Therapy Pain Assessment Pain When Pain Assessed At Rest Pain Present Pain Present Pain Reported Location Left Wrist Intensity 6 Scale Used Numeric (1 - 10) Description Aching Pressure Throbbing With Movement Pain Management Techniques Apply Cold Modification of Treatment Re-positioning Timing of Activity with Medications PT-Bed Mobility Assessment Supine to Sit Supine to Sit Independent Sit to Supine Sit to Supine Independent PT-Transfer Assessment Sit to and From Stand Sit to and from Stand Independent Equipment Transfer Assistive Device None Transfers Transfer Destination Bed Chair Transfer Technique Stand Step Pivot Transfer Ability Level of Assist Independent Gait Assessment Gait Gait Assistance Required: Independent Assistive Devices Assistive Device None Gait Deviations General Gait Pattern Within Normal Limits PT-Balance Assessment Sitting Balance and Reactions Static Sitting Balance Ability Normal Dynamic Sitting Balance Ability Normal Standing Balance and Reactions Static Standing Balance Ability Normal Dynamic Standing Balance Ability Good Orientation Orientation/Cognition Level of Alertness Alert Orientation Name Age Birthday Month Date Year Day of Week Place Situation Language Function Ability No Deficits Noted Safety Awareness Understands Safety Issues Memory Description No Deficits Noted Gross Range of Motion Upper Extremity ROM Assessment Within Functional Limits Impairments except L wrist/hand limited by swelling and bandaging Lower Extremity ROM Assessment Within Functional Limits Strength Upper Extremity Strength Assessment Within Functional Limits Lower Extremity Strength Assessment Within Functional Limits Physical Therapy Treatment Exercises Exercises Wrist ROM Hand ROM Education Education Provided Precautions Safety PT Summary Assessment and Plan Potential Rehabilitation Potential Excellent Status of Condition at Evaluation Stable Summary Progress Towards Goals Safe For Discharge Assessment Summary Pt is POD#1 I&D of infect L hand surgical incision. Pt is able to mobilize safely at an independent level and has considerable support from friends/neighbors at home for more challenging ADLs. Pt is safe to discharge home when medically ready. Once home pt will benefit from outpatient PT or OT to address limitations from the L hand surgery. Pt has no acute therapy needs, we will sign off. Goals Bed Mobility Goal Independent Transfer Goal Independent Gait Goal Independent Frequency of Treatment Frequency Of Treatment Discharge Recommendations To Nursing Amount of Assist Needed Standby Assistance Discharge Recommendations PT Discharge Recommendations Home with Assistance Outpatient PT
[2018-01-05 09:34] LABS: Add Manual Diff / Slide Review NO; Basophils Percent Auto 0.4 % (0-2); Hematocrit 36.1 % (36-46); Hemoglobin 12.2 g/dL (12.0-16.0); Lymphocytes Percent Auto 9.9 % (25-40); Mean Corpuscular HGB Conc 33.8 % (30-36); Mean Corpuscular Hemoglobin 31.8 PG (26-34); Mean Corpuscular Volume 94.1 fL (80-100); Monocytes Percent Auto 4.2 % (3-14); Neutrophils Absolute Auto 9400 /uL (3000-5900); Neutrophils Percent Auto 85.5 % (50-75); Platelet Count 274 X10^3/uL (150-400); Red Blood Cell Count 3.84 X10^6/uL (4.0-5.2); Red Cell Distribution Width 11.9 % (11.6-14.8)
[2018-01-05 09:52] LABS: Alanine Aminotransferase 17 IU/L (9-52); Albumin 3.9 g/dL (3.5-5.0); Albumin Globulin Ratio 1.1 (1.0-2.8); Alkaline Phosphatase 53 U/L (38-126); Aspartate Aminotransferase 21 IU/L (14-36); BUN Creatinine Ratio 18.6 (6-22); Bilirubin Total 0.4 mg/dL (0.2-1.3); Blood Urea Nitrogen 13 mg/dL (7-17); Calcium 8.9 mg/dL (8.4-10.2); Carbon Dioxide 32 mmol/L (22-32); Chloride 99 mmol/L (98-107); Estimated Glomerular Filt Rate > 60.0 mL/min (>60); Globulin 3.7 g/dL (1.7-4.1); Glucose 175 mg/dL (80-110); HEMOLYSIS < 15 (0-50); Potassium 4.2 mmol/L (3.4-5.1); Sodium 140 mmol/L (137-145); Total Protein 7.6 g/dL (6.3-8.2)
[2018-01-05 13:11] VITALS: BP 129/63; PULSE 77; RESP 16; TEMP 36.9; O2SAT 98
[2018-01-05 16:10] VITALS: BP 145/66; PULSE 82; RESP 20; TEMP 36.9; O2SAT 96
[2018-01-05 19:50] VITALS: BP 120/49; PULSE 80; RESP 16; TEMP 37.3; O2SAT 96
[2018-01-05 23:28] VITALS: BP 135/59; PULSE 76; RESP 17; TEMP 36.8; O2SAT 97
[2018-01-06] MEDS: CEFAZOLIN 1 GM/50 ML FROZ.PIGGY IV ×3 (01:30→18:44)
[2018-01-06] MEDS: SODIUM CHLORIDE 0.9% FLUSH 10 ML IV ×2 (01:31→08:33)
[2018-01-06 08:26] VITALS: BP 163/89; PULSE 84; RESP 16; TEMP 36.6; O2SAT 95
[2018-01-06] MEDS: hydrOXYzine pamoate 25 MG CAPSULE PO ×2 (08:32→16:49)
[2018-01-06] MEDS: ACETAMINOPHEN 325 MG TABLET 650 MG PO ×2 (08:32→16:50)
[2018-01-06] MEDS: METOPROLOL 50 MG TABLET PO (08:33)
[2018-01-06] MEDS: LEVOTHYROXINE 150 MCG TABLET PO (08:33)
[2018-01-06] MEDS: ESTRADIOL 1 MG TABLET PO (08:33)
[2018-01-06] MEDS: CITALOPRAM 20 MG TABLET PO (08:33)
[2018-01-06 09:46] VITALS: O2SAT 95
[2018-01-06 12:10] VITALS: BP 126/60; PULSE 81; RESP 16; TEMP 36.6; O2SAT 97
[2018-01-06 16:00] VITALS: BP 148/116; PULSE 85; RESP 20; TEMP 37.6; O2SAT 98
[2018-01-06] MEDS: OXYCODONE IR 5 MG TABLET PO (16:49)
--- NOTE | 2018-01-06 17:18 | PM.PN.1 ---
Subjective Date Patient Seen: 01/06/18 Time Patient Seen: 16:19 Interval history: Patient is postop day 2. Status post incision and drainage of an infected wound form a 1st dorsal tendon surgery. She is having less pain than prior to the surgery but more pain than yesterday. She feels that the pain medication does decrease the amount of pain that she has. When she 1st presented to the emergency department she did have atrial fibrillation with a rapid ventricular rate but converted to normal sinus rhythm over 36 hr ago and has had maintained normal sinus rhythm. She denies any shortness of breath or chest pain. She is tolerating p.o. without difficulty. She is having normal urination and normal stooling. Twelve point review of systems is negative other than above Exam Vital Signs (past 8 hours): - 01/06/18 09:46 01/06/18 12:10 01/06/18 16:00 Temperature 97.8 F 99.6 F Pulse Rate 81 85 Respiratory Rate 16 20 Blood Pressure 126/60 H 148/116 H Pulse Oximetry 95 97 98 Oxygen Delivery Method Room Air Oxygen Flow Rate 0 Narrative Exam Narrative: She is afebrile but T-max 99.6?, vital signs are stable She is alert and oriented x3 in no apparent distress HEENT: Mucous membranes moist and pink Neck: Supple without adenopathy or thyromegaly Chest: Clear to auscultation without wheezes rhonchi or crackles Cor: Regular rate and rhythm without murmur rubs or gallops Abdomen: Positive bowel sounds, soft, nontender, nondistended Extremities: No edema lower extremity, pulses intact Left hand shows normal sensation of the digits. There is no erythema of the distal digits and there is decreased flexion and extension due to pain and stiffness of the thumb. Dressing was not removed. It has not been removed since surgery and there is some dried blood on the bandage Objective Labs Result Diagrams: 01/05/18 09:20 01/05/18 09:20 Assessment & Plan Plan: Assessment/Plan Narrative: 72-year-old female admitted for a postoperative wound infection and taken to the OR by Dr. Kidd 2 on 01/04/2018 and who is now postop day 2. Plan: Discussed with Dr. Kidd that there have not been any dressing orders and that she has not been seen by orthopedist since the surgery. She seems to be improving but some concern that worsened pain today. Her culture came back showing that it was pansensitive and sensitive to the IV Ancef that she is on. We will wait for Orthopedics to come address the wound. Assessment 2. Episode of atrial fibrillation with rapid ventricular rate related to infection now resolved Plan: She will continue on the metoprolol and she will have outpatient workup including an echo for this issue. Assessment 3. Hypothyroidism without acute issues Plan: Continue on same thyroid medication Assessment 4. Depression stable on citalopram Plan: Continue the same Assessment 5. Hypertension with some elevated blood pressures associated with pain Plan: Continue on her same blood pressure medication Quality VTE Deep Vein Thrombosis/Pulmonary Embolism Present on Admission: No
--- NOTE | 2018-01-06 17:56 | PM.PN.1 ---
Subjective Date Patient Seen: 01/06/18 Time Patient Seen: 17:56 Interval history: Patient is POD#2 s/p I&D of left wrist wound. Exam Vital Signs (past 8 hours): - 01/06/18 12:10 01/06/18 16:00 Temperature 97.8 F 99.6 F Pulse Rate 81 85 Respiratory Rate 16 20 Blood Pressure 126/60 H 148/116 H Pulse Oximetry 97 98 Oxygen Delivery Method Room Air Oxygen Flow Rate 0 Objective Labs Result Diagrams: 01/05/18 09:20 01/05/18 09:20 Assessment & Plan Plan: Assessment/Plan Narrative: Pt's dressing was changed. Her wound is significantly improved. Her erythema has resolved. MY drain removed with small amount of serous drainage. Pt's wound was re-dressed. Pt says her pain is better and able to move her fingers better compare to when she came into the ED. She is cleared to be discharged with oral antibiotics. Her culture shows MSSA and is sensitive to ancef and keflex. She can follow up with Dr. Chu later this week or next week for wound check. She can perform dressing change q 2 days with gauze. She can wash her wound with soap and water when she does the dressing change. Time Spent With Patient Time with patient: 25 - 35 minutes Quality VTE Deep Vein Thrombosis/Pulmonary Embolism Present on Admission: No
--- NOTE | 2018-01-06 18:52 | PC.NURSE ---
blake note Standby assist to Dr. Kidd while he removed Vader drain and did drsg change. IV abx given prior to discharge. Son now at bedside, awaiting discharge paperwork.
--- NOTE | 2018-03-03 08:17 | PM.DS.1 ---
History of Present Illness Chief complaint: Pain S/P Wrist Surgery Discharge Providers Date of admission: 01/04/18 03:08 Primary care physician: Sai Gustafson MD Consults: 01/04/18 12:23 Consult to Discharge Planning Routine Comment: Consult to Physical Therapy Evaluate & Treat Comment: Physician Instructions: Evaluate and Treat Consult to Respiratory Therapy Evaluate & Treat Comment: Physician Instructions: Evaluate and treat Discharge provider: Tierney Huntley MD Summary Discharge Diagnosis: Postop infection status post drainage in OR, improved culture pansensitive, treated with IV Ancef Atrial fibrillation with rapid ventricular rate secondary to systemic illness, resolved Sepsis Hospital Course: Patient postop from de Quervain tenosynovitis release by Dr. Chu with infection and sepsis syndrome. Developed atrial fibrillation with rapid ventricular rate while in the ER. Patient was taken to the OR and debrided. Patient return to sinus rhythm and maintained sinus rhythm. Patient was medically stable. Culture was pansensitive. Patient was improved. Please see my dictation of 01/06/[address] Kidd. She was discharged home by Orthopedics on oral cephalosporins with follow-up as outpatient with Dr. Gustafson and Orthopedics. She will continue on outpatient regimen. Status at Discharge Cognitive/behavioral status at discharge: Normal Functional status at discharge: independent ambulation Overall status at discharge: patient is back to baseline Time Spent with Patient Less than 30 minutes Exam Vital Signs (past 8 hours): Oxygen Delivery Method Room Air Oxygen Flow Rate 0 Narrative Exam Narrative: Alert and oriented x3 with vital signs stable Neck: Supple Chest: Clear to auscultation without wheezes rhonchi or crackles Cor: Regular rate and rhythm without any murmurs Bilateral upper extremity show no evidence of compartment syndrome. Postop dressing still in place Objective Labs Result Diagrams: 01/05/18 09:20 01/05/18 09:20 Discharge Plan Discharge Plan Patient Disposition: Home Discharge Med Rec/Prescriptions Prescriptions: New oxycodone 5 mg tablet 5 mg PO Q6-12H PRN (Reason: Pain, Moderate (4-6)) Qty: 30 RF: 0 Continue spironolactone [Aldactone] 25 MG tablet 50 mg PO QDAY Qty: 0 RF: 0 potassium chloride 20 mEq Tablet Extended Release 20 meq PO BID Qty: 0 RF: 0 citalopram 20 mg tablet 20 mg PO DAILY RF: 0 estradiol 2 mg tablet 0.5 tab PO DAILY RF: 0 hydroxyzine pamoate 25 mg capsule 1 - 2 cap PO DAILY RF: 0 metoprolol tartrate 50 mg tablet 1 tab PO BID RF: 0 levothyroxine 150 mcg tablet 1 tab PO DAILY RF: 0 mometasone 0.1 % solution 1 applic Topical BID RF: 0 Follow up/Referrals: [facility] [Provider Group] (In 5 days for wound check. Call to make an appointment.) Skin/Wound/Dressing Care Report to your healthcare provider any signs of infection, such as:: chills, fever, night sweats, increased pain and unusual drainage Dressing: On January 08October removed dressing and wash wound with soap and water, then put new dressing on. Use gauze pads, then secure with gauze roll. Visit Report/Discharge Packet Visit Report Forms: Stroke Signs & Symptoms Discharge Data Primary Care Provider: Sai Gustafson Attending Provider: Sai Gustafson Admit Date/Time: 01/04/18 03:08 Discharges patient from system. Discharge Date/Time: 01/06/18 19:38 Quality VTE Deep Vein Thrombosis/Pulmonary Embolism Present on Admission: No
== END 2018-01-06 19:38 | disposition home or self-care (01) | DRG 857 ==
LOC: ED 02:10 → ICU 11:55
PROVIDERS: Orthopaedic Surgery Orthopaedic Surgery of the Spine; Admitting Provider Family Medicine; Emergency Provider Emergency Medicine; Family Provider Family Medicine; PCP Family Medicine; Visit Provider Family Medicine
PROC: 0LB80ZZ Excision of Left Hand Tendon, Open Approach (ICD-10-PCS; principal; 2018-01-04 10:30)
DX: T81.4XXA Infection following a procedure, initial encounter (principal); T81.31XA Disruption of external operation (surgical) wound, not elsewhere classified, initial encounter; L03.114 Cellulitis of left upper limb; I48.91 Unspecified atrial fibrillation; E78.5 Hyperlipidemia, unspecified; I10 Essential (primary) hypertension; E03.9 Hypothyroidism, unspecified; F32.9 Major depressive disorder, single episode, unspecified; Y83.2 Surgical operation with anastomosis, bypass or graft as the cause of abnormal reaction of the patient, or of later complication, without mention of misadventure at the time of the procedure
CPT/HCPCS: 36415; 36591; 64450; 71045; 80053; 83605; 84145; 84484; 85025; 85651; 86140; 87040; 87070; 87075; 87147; 87150; 87186; 87205; 87797; 93005; 94760; 94762; 97110; 97116; 97161; 99283; J1100; J1170; J2250; J2270; J2704; J2795; J3010

== ENCOUNTER → 2018-03-05 15:53 | Outpatient (CLI) | payer OTHER, SELFPAY ==
[2018-01-04 09:18] VITALS: BMI 30.2
== END ==
PROVIDERS: Family Provider Family Medicine; PCP Family Medicine; Visit Provider Internal Medicine

== ENCOUNTER → 2018-03-10 09:26 | Outpatient (CLI) | payer OTHER, SELFPAY ==
[2018-01-04 09:18] VITALS: BMI 30.2
== END ==
PROVIDERS: Family Provider Family Medicine; PCP Family Medicine; Visit Provider Internal Medicine
DX: S61.402D Unspecified open wound of left hand, subsequent encounter (principal); T81.31XD Disruption of external operation (surgical) wound, not elsewhere classified, subsequent encounter; L03.114 Cellulitis of left upper limb
CPT/HCPCS: 87070; 87077; 87147; 87186; 87205; 99213

== ENCOUNTER → 2018-03-13 12:17 | Outpatient (CLI) | payer OTHER, SELFPAY ==
[2018-01-04 09:18] VITALS: BMI 30.2
== END ==
PROVIDERS: Family Provider Family Medicine; PCP Family Medicine; Visit Provider Internal Medicine
DX: S61.402D Unspecified open wound of left hand, subsequent encounter (principal); T81.31XD Disruption of external operation (surgical) wound, not elsewhere classified, subsequent encounter; L03.114 Cellulitis of left upper limb
CPT/HCPCS: 87070; 87077; 87147; 87186; 87205; 99213

== ENCOUNTER → 2018-03-17 08:28 | Outpatient (CLI) | payer OTHER, SELFPAY ==
[2018-01-04 09:18] VITALS: BMI 30.2
--- NOTE | 2018-03-17 | OV.WND_ITS ---
Progress Note Details Patient Name: Rebecca Eugene Patient Number: [id number] Patient Date of : 1945 Patient Date: 03/17/2018 Clinician: Glory Melendez Clinician Cosigner: Sussy Holden Physician / Display Manager: Junior Barba SUBJECTIVE Chief Complaint This information was obtained from the patient Non-healing wound to left hand Allergies etodolac, bee Sting HPI This information was obtained from the patient 03/17/18. Seen by Dr. Barba. The patient reports improvement in terms of pain and drainage associated with the left 1st MCPJ surgical wound since changing from doxycycline to Bactrim last Friday. Her wound culture again grew MSSA and she does not report adverse side effects of the Bactrim nor fevers or feeling unwell in general. 03/13/18. Seen by Dr. Barba. The patient reports worsening pain and increased drainage associated with the left 1st MCPJ surgical wound over the past 24 hours despite taking doxycycline as prescribed. She does not report fevers nor adverse side effects from the doxycycline. 03/10/18. Seen by Dr. Barba. The patient's new to our clinic and presents with a left 1st MCPJ surgical wound following a procedure about one month ago that was complicated by infection and required a second procedure to wash out the wound. She received one course of antibiotics following the initial surgery but has not been on any recently. She reports some discomfort in the thumb but no significant drainage. Past Medical History This information was obtained from the patient Patient has a medical history of: Hypertension Arthritis Hypothyroidism Complaints and Symptoms This information was obtained from the patient Patient complains of: General Notes: I have reviewed and concur with the Review of Systems and Past Family Social History documents completed by the clinician, I have reviewed and concur with the Wound Assessment document completed by the clinician Hematologic/Lymphatic: Bleeding Tendency Integumentary (Hair/Skin/Nails): Open Sore Musculoskeletal: Joint Swelling Prior Wound History: Drainage, Erythema, Pain Patient denies complaints or symptoms related to: Cardiovascular (Central): Irregular heart beat Constitutional Symptoms (General Health): Chills, Fever Ear/Nose/Mouth/Throat: Hearing Loss / Aid Hematologic/Lymphatic: Bleeding / Clotting Disorders Neurological: Loss of Protective Sensation Psychiatric: Memory Loss Respiratory: Shortness of Breath OBJECTIVE Constitutional BP elevated; Afebrile; Alert and in no distress. Well developed. Alert. Clean appearing.. Height/Length: 62 in (157.48 cm), Weight: 162.3 lbs (73.77 kgs), BMI: 29.7, Temperature: 98.2 ?F (36.78 ?C), Pulse: 82 bpm, Respiratory Rate: 16 breaths/min, Blood Pressure: 158/80 mmHg, Pulse Oximetry: 99 %. Ears, Nose, Mouth, and Throat: No clinically significant hearing loss on informal examination. Respiratory: No respiratory distress. Even respirations and without use of accessory muscles.. Integumentary (Hair, Skin) Refer to appropriate clinician wound documentation for this visit; left 1st MCPJ wound extends to deep subcut, hypergranulation protruding from base, minimal erythema in the periwound area without warmth or tenderness; improved over preview exam. Wound #1 Left Hand is a chronic Full Thickness Surgical Wound and has received a status of Not Healed. Subsequent wound encounter measurements are 1cm length x 1cm width x 0.1cm depth, with an area of 1 sq cm and a volume of 0.1 cubic cm. No tunneling has been noted. No sinus tract has been noted. No undermining has been noted. There is a small amount of serosanguineous drainage noted which has no odor. The patient reports a wound pain of level 10/10. The wound margin is attached. Wound bed has Yes epithelialization, No eschar, Yes slough, Yes bright red, firm granulation. The periwound skin texture is normal. The periwound skin moisture is normal. The periwound skin color is normal. The temperature of the periwound skin is WNL. Periwound skin does not exhibit signs or symptoms of infection. Local Pulse is Palpable. Neurological: Cranial nerves grossly intact with symmetric function normal by informal observation.. ASSESSMENT Active Problems ICD-10 (Encounter Diagnosis) S61.402D - Unspecified open wound of left hand, subsequent encounter (Encounter Diagnosis) T81.31XD - Disruption of external operation (surgical) wound, not elsewhere classified, subsequent encounter (Encounter Diagnosis) B95.61 - Methicillin susceptible Staphylococcus aureus infection as the cause of diseases classified elsewhere PROCEDURES Wound #1 Wound #1 (Surgical Wound) is located on the left hand. A Chemical Cauterization procedure was performed by Junior Barba MD. General Notes: Hypergranulation treated PLAN Wound Orders: Wound #1 Left Hand Anesthetic Topical Xylocaine to wound bed. - In clinic only Cleanser Cleanse Wound: - Normal saline and gauze. Dressings Primary dressing: - Border foam Cover and secure with: - Netting Change Dressing: - Every other day Additional Orders: Follow-Up Appointments Return Appointment: - - One week Other information: If you develop fever, chills, increased pain, drainage, redness or swelling please call our office. If after hours, respond to the ER. Should you experience any significant changes in your wound(s) or have any questions regarding your home care instructions please contact the wound center @ [phone]. If after hours, contact your primary care physician or go to the hospital emergency room. Scribing Attestation I attest, as the nurse, that I scribed these orders for the physician. General Notes: Please complete oral antibiotics. In addition the presence of hypergranulation tissue in the wound was not an expected finding and was cauterized with silver nitrate. The patient's dressing regimen will be modified appropriately to attempt to reduce the formation of further hypergranulation tissue. Also, the patient will complete her course of Bactrim as prescribed. Electronic Signature(s) Signed By: Date: Junior Barba MD 03/18/2018 13:52:56 Entered By: Junior Barba on 03/18/2018 13:45:40
== END ==
PROVIDERS: Family Provider Family Medicine; PCP Family Medicine; Visit Provider Internal Medicine
DX: S61.402D Unspecified open wound of left hand, subsequent encounter (principal); T81.31XD Disruption of external operation (surgical) wound, not elsewhere classified, subsequent encounter; B95.61 Methicillin susceptible Staphylococcus aureus infection as the cause of diseases classified elsewhere; L92.9 Granulomatous disorder of the skin and subcutaneous tissue, unspecified
CPT/HCPCS: 17250

== ENCOUNTER → 2018-03-24 08:31 | Outpatient (CLI) | payer OTHER, SELFPAY ==
[2018-01-04 09:18] VITALS: BMI 30.2
--- NOTE | 2018-03-24 | OV.WND_ITS ---
Progress Note Details Patient Name: Rebecca Eugene Patient Number: [id number] Patient Date of : 1945 Patient Date: 03/24/2018 Clinician: Glory Melendez Clinician Cosigner: Geno Larsen Physician / Flat Ironer: Junior Barba SUBJECTIVE Chief Complaint This information was obtained from the patient Non-healing wound to left hand Allergies etodolac, bee Sting HPI This information was obtained from the patient 03/24/18. Seen by Dr. Barba. The patient does not report pain or significant drainage associated with the left 1st MCPJ surgical wound since her last visit and she's completed her course of Bactrim without reporting adverse side effects. 03/17/18. Seen by Dr. Barba. The patient reports improvement in terms of pain and drainage associated with the left 1st MCPJ surgical wound since changing from doxycycline to Bactrim last Friday. Her wound culture again grew MSSA and she does not report adverse side effects of the Bactrim nor fevers or feeling unwell in general. 03/13/18. Seen by Dr. Barba. The patient reports worsening pain and increased drainage associated with the left 1st MCPJ surgical wound over the past 24 hours despite taking doxycycline as prescribed. She does not report fevers nor adverse side effects from the doxycycline. 03/10/18. Seen by Dr. Barba. The patient's new to our clinic and presents with a left 1st MCPJ surgical wound following a procedure about one month ago that was complicated by infection and required a second procedure to wash out the wound. She received one course of antibiotics following the initial surgery but has not been on any recently. She reports some discomfort in the thumb but no significant drainage. Past Medical History This information was obtained from the patient Patient has a medical history of: Hypertension Arthritis Hypothyroidism Complaints and Symptoms This information was obtained from the patient Patient complains of: General Notes: I have reviewed and concur with the Review of Systems and Past Family Social History documents completed by the clinician, I have reviewed and concur with the Wound Assessment document completed by the clinician Hematologic/Lymphatic: Bleeding Tendency Integumentary (Hair/Skin/Nails): Open Sore Musculoskeletal: Joint Swelling Prior Wound History: Drainage, Erythema, Pain Patient denies complaints or symptoms related to: Cardiovascular (Central): Irregular heart beat Constitutional Symptoms (General Health): Chills, Fever Ear/Nose/Mouth/Throat: Hearing Loss / Aid Hematologic/Lymphatic: Bleeding / Clotting Disorders Neurological: Loss of Protective Sensation Psychiatric: Memory Loss Respiratory: Shortness of Breath OBJECTIVE Constitutional BP elevated; Afebrile; Alert and in no distress. Well developed. Alert. Clean appearing.. Height/Length: 62 in (157.48 cm), Weight: 161 lbs (73.18 kgs), BMI: 29.4, Temperature: 98.2 ?F (36.78 ?C), Pulse: 78 bpm, Respiratory Rate: 16 breaths/min, Blood Pressure: 160/80 mmHg, Pulse Oximetry: 98 %. Ears, Nose, Mouth, and Throat: No clinically significant hearing loss on informal examination. Respiratory: No respiratory distress. Even respirations and without use of accessory muscles.. Integumentary (Hair, Skin) Refer to appropriate clinician wound documentation for this visit; left 1st MCPJ wound extends to subcut with hypergranulation protruding from base, no erythema in the periwound area, no warmth or tenderness. Wound #1 Left Hand is a chronic Full Thickness Surgical Wound and has received a status of Not Healed. Subsequent wound encounter measurements are 0.4cm length x 0.5cm width with no measurable depth, with an area of 0.2 sq cm . Hypergranulation was noted. No tunneling has been noted. No sinus tract has been noted. No undermining has been noted. There is a small amount of serosanguineous drainage noted which has no odor. The patient reports a wound pain of level 10/10. The wound margin is attached. Wound bed has Yes epithelialization, No eschar, No slough, Yes bright red, firm granulation. The periwound skin texture is normal. The periwound skin moisture is normal. The periwound skin color is normal. The temperature of the periwound skin is WNL. Periwound skin does not exhibit signs or symptoms of infection. Local Pulse is Palpable. ASSESSMENT Active Problems ICD-10 (Encounter Diagnosis) S61.402D - Unspecified open wound of left hand, subsequent encounter (Encounter Diagnosis) T81.31XD - Disruption of external operation (surgical) wound, not elsewhere classified, subsequent encounter (Encounter Diagnosis) L92.9 - Granulomatous disorder of the skin and subcutaneous tissue, unspecified PROCEDURES Wound #1 Wound #1 (Surgical Wound) is located on the left hand. A Chemical Cauterization procedure was performed by Junior Barba MD. Pain control was achieved using 4% Lido. The procedure was tolerated well with pain level of 0 throughout and a pain level of 0 following the procedure. General Notes: Hypergranulation treated PLAN Wound Orders: Wound #1 Left Hand Anesthetic Topical Xylocaine to wound bed. - In clinic only Cleanser Cleanse Wound: - Normal saline and gauze. Dressings Primary dressing: - Border foam Change Dressing: - Every 2-3 days Additional Orders: Follow-Up Appointments Return Appointment: - - One week to 10 days Other information: If you develop fever, chills, increased pain, drainage, redness or swelling please call our office. If after hours, respond to the ER. Should you experience any significant changes in your wound(s) or have any questions regarding your home care instructions please contact the wound center @ [phone]. If after hours, contact your primary care physician or go to the hospital emergency room. Scribing Attestation I attest, as the nurse, that I scribed these orders for the physician. In addition the presence of hypergranulation tissue in the wound was not an expected finding and was cauterized with silver nitrate. The patient's dressing regimen will be modified appropriately to attempt to reduce the formation of further hypergranulation tissue. Electronic Signature(s) Signed By: Date: Junior Barba MD 03/25/2018 07:59:58 Entered By: Junior Barba on 03/24/2018 09:14:50
== END ==
PROVIDERS: Family Provider Family Medicine; PCP Family Medicine; Visit Provider Internal Medicine
DX: S61.402A Unspecified open wound of left hand, initial encounter (principal); T81.31XA Disruption of external operation (surgical) wound, not elsewhere classified, initial encounter; L92.9 Granulomatous disorder of the skin and subcutaneous tissue, unspecified
CPT/HCPCS: 17250

== ENCOUNTER → 2018-04-14 10:17 | Outpatient (CLI) | payer OTHER, SELFPAY ==
[2018-01-04 09:18] VITALS: BMI 30.2
--- NOTE | 2018-04-14 | OV.WND_ITS ---
Progress Note Details Patient Name: Rebecca Eugene Patient Number: [id number] Patient Date of : 1945 Patient Date: 04/14/2018 Clinician: Hailey Dockery Clinician Cosigner: Sussy Holden Physician / Exploitation Analyst: Junior Barba SUBJECTIVE Chief Complaint This information was obtained from the patient Non-healing wound to left hand. Allergies etodolac, bee Sting HPI This information was obtained from the patient 04/14/18. Seen by Dr. Barba. The patient does not report pain or significant drainage associated with the left 1st MCPJ surgical wound since her last visit. 03/24/18. Seen by Dr. Barba. The patient does not report pain or significant drainage associated with the left 1st MCPJ surgical wound since her last visit and she's completed her course of Bactrim without reporting adverse side effects. 03/17/18. Seen by Dr. Barba. The patient reports improvement in terms of pain and drainage associated with the left 1st MCPJ surgical wound since changing from doxycycline to Bactrim last Friday. Her wound culture again grew MSSA and she does not report adverse side effects of the Bactrim nor fevers or feeling unwell in general. 03/13/18. Seen by Dr. Barba. The patient reports worsening pain and increased drainage associated with the left 1st MCPJ surgical wound over the past 24 hours despite taking doxycycline as prescribed. She does not report fevers nor adverse side effects from the doxycycline. 03/10/18. Seen by Dr. Barba. The patient's new to our clinic and presents with a left 1st MCPJ surgical wound following a procedure about one month ago that was complicated by infection and required a second procedure to wash out the wound. She received one course of antibiotics following the initial surgery but has not been on any recently. She reports some discomfort in the thumb but no significant drainage. Past Medical History This information was obtained from the patient Patient has a medical history of: Hypertension Arthritis Hypothyroidism Complaints and Symptoms This information was obtained from the patient Patient complains of: General Notes: I have reviewed and concur with the Review of Systems and Past Family Social History documents completed by the clinician, I have reviewed and concur with the Wound Assessment document completed by the clinician Hematologic/Lymphatic: Bleeding Tendency Integumentary (Hair/Skin/Nails): Open Sore Musculoskeletal: Joint Swelling Prior Wound History: Drainage, Erythema, Pain Patient denies complaints or symptoms related to: Cardiovascular (Central): Irregular heart beat Constitutional Symptoms (General Health): Chills, Fever Ear/Nose/Mouth/Throat: Hearing Loss / Aid Hematologic/Lymphatic: Bleeding / Clotting Disorders Neurological: Loss of Protective Sensation Psychiatric: Memory Loss Respiratory: Shortness of Breath OBJECTIVE Constitutional BP elevated; Afebrile; Alert and in no distress. Well developed. Alert. Clean appearing.. Height/Length: 62 in (157.48 cm), Weight: 161 lbs (73.18 kgs), BMI: 29.4, Temperature: 98.4 ?F (36.89 ?C), Pulse: 73 bpm, Respiratory Rate: 17 breaths/min, Blood Pressure: 163/74 mmHg, Pulse Oximetry: 100 %. Ears, Nose, Mouth, and Throat: No clinically significant hearing loss on informal examination. Respiratory: No respiratory distress. Even respirations and without use of accessory muscles.. Integumentary (Hair, Skin) Refer to appropriate clinician wound documentation for this visit.. Wound #1 Left Hand is a chronic Full Thickness Surgical Wound and has received an outcome of Healed - no new wound(s). Subsequent wound encounter measurements are 0cm length x 0cm width x 0cm depth, with an area of 0 sq cm and a volume of 0 cubic cm. Hypergranulation was noted. No tunneling has been noted. No sinus tract has been noted. No undermining has been noted. There was no drainage noted. The patient reports a wound pain of level 1/10. The wound margin is attached. Wound bed has Yes epithelialization , No eschar, No slough, No granulation. The periwound skin texture is normal. The periwound skin moisture is normal. The periwound skin color is normal. The temperature of the periwound skin is WNL. Periwound skin does not exhibit signs or symptoms of infection. Local Pulse is Palpable. General Notes: Covered in dried exudate. Neurological: Cranial nerves grossly intact with symmetric function normal by informal observation.. ASSESSMENT Active Problems ICD-10 (Encounter Diagnosis) S61.402D - Unspecified open wound of left hand, subsequent encounter (Encounter Diagnosis) T81.31XD - Disruption of external operation (surgical) wound, not elsewhere classified, subsequent encounter PLAN Wound Orders: Wound #1 Left Hand Anesthetic Topical Xylocaine to wound bed. - In clinic only Cleanser Cleanse Wound: - Normal saline and gauze. Additional Orders: Follow-Up Appointments Other information: If you develop fever, chills, increased pain, drainage, redness or swelling please call our office. If after hours, respond to the ER. Should you experience any significant changes in your wound(s) or have any questions regarding your home care instructions please contact the wound center @ [phone]. If after hours, contact your primary care physician or go to the hospital emergency room. Discharge from Outpatient Services. - Wound healed. Scribing Attestation I attest, as the nurse, that I scribed these orders for the physician. I've reviewed the clinician's documentation and agree with the evaluation and plan as written. In addition the patient's last remiaining complex wound is now healed. The patient is invited to return to our clinic for treatment of any future complex wounds. Post wound care and strategies to avoid recurrences were discussed. Electronic Signature(s) Signed By: Date: Junior Barba MD 04/17/2018 07:29:40 Entered By: Junior Barba on 04/17/2018 07:21:23
== END ==
PROVIDERS: Family Provider Family Medicine; PCP Family Medicine; Visit Provider Internal Medicine
DX: S61.402D Unspecified open wound of left hand, subsequent encounter (principal); T81.31XD Disruption of external operation (surgical) wound, not elsewhere classified, subsequent encounter
CPT/HCPCS: 99213

== ENCOUNTER → 2019-01-19 09:12 | Outpatient (CLI) | payer OTHER, SELFPAY ==
[2018-01-04 09:18] VITALS: BMI 30.2
--- NOTE | 2019-01-19 | DI.MG.S_ITS ---
BILATERAL DIGITAL SCREENING MAMMOGRAM 3D/2D WITH CAD: 01/19/2019 CLINICAL: Routine screening. Comparison is made to exams dated: 10/25/2017 mammogram, 09/27/2016 mammogram, and 06/01/2015 mammogram - [facility]. There are scattered fibroglandular elements in both breasts. Current study was also evaluated with a Computer Aided Detection (CAD) system. There are benign post operative findings in both breasts. There also are benign calcifications in both breasts. No significant masses, calcifications, or other findings are seen in either breast. There has been no significant interval change. IMPRESSION: There is no mammographic evidence of malignancy. A 1 year screening mammogram is recommended. This exam was interpreted at Station ID: [id number]. NOTE: For mammograms, a report in lay terms will be sent to the patient. Approximately 15% of breast malignancies will not be visualized mammographically. In the management of a palpable breast mass, a negative mammogram must not discourage biopsy of a clinically suspicious lesion. Electronically Signed By: Zeus castellanos/eliseo:01/19/2019 11:31:09 letter sent: Normal Exam ACR BI-RADS Category 2: Benign Finding(s) [id number]
== END ==
PROVIDERS: Family Provider Family Medicine; PCP Family Medicine; Visit Provider Family Medicine
DX: Z12.31 Encounter for screening mammogram for malignant neoplasm of breast (principal); M81.0 Age-related osteoporosis without current pathological fracture; Z78.0 Asymptomatic menopausal state
CPT/HCPCS: 77063; 77067; 77080

== ENCOUNTER → 2019-05-12 17:06 | Outpatient (CLI) | payer OTHER, SELFPAY ==
[2018-01-04 09:18] VITALS: BMI 30.2
[2019-05-12 17:27] LABS: Add Manual Diff / Slide Review NO; Basophils Absolute Auto 100 /uL (0-100); Basophils Percent Auto 1.3 % (0-2); Eosinophils Absolute Auto 100 /uL (0-450); Eosinophils Percent Auto 1.5 % (2-4); Hematocrit 40.3 % (36-46); Hemoglobin 13.5 g/dL (12.0-16.0); Lymphocytes Absolute Auto 3000 /uL (1100-4500); Lymphocytes Percent Auto 30.6 % (25-40); Mean Corpuscular HGB Conc 33.5 % (30-36); Mean Corpuscular Hemoglobin 31.7 PG (26-34); Mean Corpuscular Volume 94.6 fL (80-100); Monocytes Absolute Auto 700 /uL (0-900); Monocytes Percent Auto 7.6 % (3-14); Neutrophils Absolute Auto 5800 /uL (1500-7000); Platelet Count 237 X10^3/uL (150-400); Red Blood Cell Count 4.27 X10^6/uL (4.0-5.2); Red Cell Distribution Width 13.4 % (11.6-14.8); White Blood Cell Count 9.8 X10^3/uL (4.5-11.0)
[2019-05-12 17:47] LABS: Alanine Aminotransferase 30 IU/L (<35); Albumin 4.3 g/dL (3.5-5.0); Albumin Globulin Ratio 1.4 (1.0-2.8); Alkaline Phosphatase 65 U/L (38-126); Aspartate Aminotransferase 40 IU/L (14-36); BUN Creatinine Ratio 15.8 (6-22); Bilirubin Total 0.7 mg/dL (0.2-1.3); Blood Urea Nitrogen 19 mg/dL (7-17); Calcium 9.8 mg/dL (8.4-10.2); Carbon Dioxide 30 mmol/L (22-32); Chloride 102 mmol/L (98-107); Estimated Glomerular Filt Rate 43.8 mL/min (>60); Globulin 3.1 g/dL (1.7-4.1); Glucose 101 mg/dL (80-110); HEMOLYSIS < 15 (0-50); Sodium 140 mmol/L (137-145); Total Protein 7.4 g/dL (6.3-8.2)
[2019-05-12 17:49] LABS: Potassium 5.5 mmol/L (3.4-5.1)
[2019-05-12 17:51] LABS: Erythrocyte Sedimentation Rate 22 MM/HR (0-20)
[2019-05-12 18:19] LABS: Thyroid Stimulating Hormone 0.44 uIU/mL (0.47-4.68)
[2019-05-12 18:54] LABS: Folate 13.8 ng/mL (2.76-20.0); Vitamin B12 369 pg/mL (239-931)
== END ==
PROVIDERS: PCP Family Medicine; Visit Provider Family Medicine
DX: R41.3 Other amnesia (principal)
CPT/HCPCS: 36415; 80053; 82607; 82746; 84443; 85025; 85651

== ENCOUNTER → 2019-05-26 10:08 | Outpatient (CLI) | payer MEDICARE, SELFPAY ==
[2018-01-04 09:18] VITALS: BMI 30.2
--- NOTE | 2019-05-26 | DI.CT.S_ITS ---
PROCEDURE: CT HEAD/BRAIN WO/W CON INDICATIONS: Other amnesia TECHNIQUE: 4.5 mm thick angled axial sections acquired from the foramen magnum to the vertex both before and after the administration of intravenous contrast, with coronal and sagittal reformats. For radiation dose reduction, the following was used: automated exposure control, adjustment of mA and/or kV according to patient size. COMPARISON: [facility], CT, HEAD W&WO CONTRAST, 05/27/2017, 11:00. FINDINGS: Image quality: Excellent. CSF spaces: Basal cisterns are patent. No extra-axial fluid collections. Ventricles are symmetric in size and shape. Brain: No midline shift. No intracranial bleeds or masses. No abnormal intracranial enhancement. There is cerebral volume loss for age. There is periventricular white matter chronic small vessel ischemic change. There is intracranial internal carotid artery atherosclerosis. Skull and face: Calvarium and visualized facial bones appear intact, without suspicious lesions. Sinuses: Visualized sinuses and mastoids are clear. IMPRESSION: 1. No acute intracranial process. 2. Moderate atrophy and chronic microvascular ischemic changes. Dictated by: Kassandra Rivera M.D. on 05/26/2019 at 11:59 Approved by: Kassandra Rivera M.D. on 05/26/2019 at 12:20
== END ==
PROVIDERS: PCP Family Medicine; Visit Provider Family Medicine
DX: R41.3 Other amnesia (principal)
CPT/HCPCS: 70470; Q9967

== ENCOUNTER → 2019-10-07 10:53 | Outpatient (ROUT) | payer SELFPAY ==
[2018-01-04 09:18] VITALS: BMI 30.2
[2019-10-08 00:29] LABS: COVID19 Sendout Not Detected (Not Detect)
== END ==
PROVIDERS: PCP Family Medicine; Visit Provider Internal Medicine
DX: Z11.59 Encounter for screening for other viral diseases (principal)
CPT/HCPCS: 87635

== ENCOUNTER 2020-04-20 13:27 | Emergency (ER) | payer MEDICARE, SELFPAY ==
[2018-01-04 09:18] VITALS: BMI 30.2
[2020-04-20 13:31] VITALS: BP 113/59; PULSE 95; RESP 14; TEMP 36.8; O2SAT 98; BMI 29.2
--- NOTE | 2020-04-20 14:07 | DI.US.S_ITS ---
PROCEDURE: US PERIPH VENOUS LOW EXTREM LT INDICATIONS: LEFT LEG SWELLING TECHNIQUE: Real-time imaging, as well as color and pulse Doppler interrogation, were performed of the lower extremity deep veins from the inguinal ligament to the popliteal fossa. COMPARISON: None. FINDINGS: There are occlusive filling defects involving the common femoral, femoral and popliteal veins are normally compressible, and free of intraluminal thrombus. Color and pulse Doppler demonstrate normal phasic intraluminal flow. There is normal augmentation response to distal compression maneuver. Occlusive filling defect is also seen in greater saphenous vein. IMPRESSION: Extensive occlusive deep venous thrombosis of the left lower extremity. The result was discussed with Annmarie Kapoor. Dictated by: Win Stevenson M.D. on 04/20/2020 at 15:21 Approved by: Win Stevenson M.D. on 04/20/2020 at 15:28
[2020-04-20 15:12] VITALS: BP 125/64; PULSE 82; RESP 18; O2SAT 97
[2020-04-20 15:55] LABS: Add Manual Diff / Slide Review NO; Basophils Absolute Auto 100 /uL (0-100); Basophils Percent Auto 0.8 % (0-2); Eosinophils Absolute Auto 300 /uL (0-450); Eosinophils Percent Auto 2.1 % (2-4); Hematocrit 37.6 % (36-46); Hemoglobin 12.5 g/dL (12.0-16.0); Lymphocytes Absolute Auto 2200 /uL (1100-4500); Lymphocytes Percent Auto 18.6 % (25-40); Mean Corpuscular HGB Conc 33.2 % (30-36); Mean Corpuscular Hemoglobin 31.3 PG (26-34); Mean Corpuscular Volume 94.4 fL (80-100); Monocytes Absolute Auto 1200 /uL (0-900); Monocytes Percent Auto 9.6 % (3-14); Neutrophils Absolute Auto 8300 /uL (1500-7000); Neutrophils Percent Auto 68.9 % (50-75); Platelet Count 189 X10^3/uL (150-400); Red Blood Cell Count 3.98 X10^6/uL (4.0-5.2); Red Cell Distribution Width 14.1 % (11.6-14.8)
[2020-04-20 16:04] LABS: INR 1.1 (0.9-1.3); Prothrombin Time 12.5 SECONDS (10.1-12.7)
[2020-04-20 16:07] LABS: PTT Partial Thromboplastin Tim 26 SECONDS (26.4-36.2)
[2020-04-20 16:13] LABS: Alanine Aminotransferase 13 IU/L (<35); Albumin 3.7 g/dL (3.5-5.0); Albumin Globulin Ratio 1.1 (1.0-2.8); Alkaline Phosphatase 61 U/L (38-126); Aspartate Aminotransferase 18 IU/L (14-36); BUN Creatinine Ratio 18.8 (6-22); Bilirubin Total 0.4 mg/dL (0.2-1.3); Blood Urea Nitrogen 16 mg/dL (7-17); Calcium 8.1 mg/dL (8.4-10.2); Carbon Dioxide 28 mmol/L (22-32); Chloride 104 mmol/L (98-107); Estimated Glomerular Filt Rate > 60.0 mL/min (>60); Globulin 3.5 g/dL (1.7-4.1); Glucose 130 mg/dL (80-110); HEMOLYSIS < 15 (0-50); Potassium 4.3 mmol/L (3.4-5.1); Sodium 137 mmol/L (137-145); Total Protein 7.2 g/dL (6.3-8.2)
[2020-04-20] MEDS: RIVAROXABAN 10 MG TABLET 15 MG PO (16:28)
[2020-04-20 16:31] VITALS: PULSE 87; O2SAT 98
[2020-04-20 17:26] VITALS: BP 109/53; PULSE 74; RESP 18; O2SAT 97
--- NOTE | 2020-04-20 18:14 | ED_ITS ---
HPI - Extremity Problem <ELAINE Zarate - Last Filed: 04/20/20 18:37> General Chief complaint: Extremity Problem,Nontraumatic Stated complaint: L lower extremity edema and pain Time Seen by Provider: 04/20/20 13:45 Source: patient Mode of arrival: Wheelchair Limitations: no limitations History of Present Illness HPI Narrative: The patient is a 74-year-old female nonsmoker with history of atrial fibrillation on blood thinners who presents with a chief complaint of left lower leg pain and swelling. She states she lives at an assisted living facility. No falls or trauma. She denies any personal history of blood clots, denies any fevers chest pain shortness of breath. She denies any recent immobility, but states that she ?does not do much.It is been ongoing for several days, she is not exactly clear how long it has been going on. Related Data Home Medications Medication Instructions Recorded Confirmed potassium chloride 20 meq PO BID #0 04/23/12 01/04/18 spironolactone [Aldactone] 50 mg PO QDAY #0 04/23/12 01/04/18 citalopram 20 mg PO DAILY 01/04/18 01/04/18 estradiol 0.5 tab PO DAILY 01/04/18 01/04/18 hydroxyzine pamoate 1 - 2 cap PO DAILY 01/04/18 01/04/18 levothyroxine 1 tab PO DAILY 01/04/18 01/04/18 metoprolol tartrate 1 tab PO BID 01/04/18 01/04/18 mometasone 1 applic TOPICAL BID 01/04/18 01/04/18 Previous Rx's Medication Instructions Recorded oxycodone 5 mg PO Q6-12H PRN #30 tab 01/06/18 rivaroxaban [Xarelto] 15 mg PO BID 21 Days #42 tab 04/20/20 Allergies Allergy/AdvReac Type Severity Reaction Status Date / Time etodolac [ETODOLAC] Allergy Unknown hives Verified 04/20/20 13:41 hydromorphone [From Dilaudid] AdvReac facial Verified 04/20/20 13:41 itching, runny nose BEE STINGS Allergy Unknown Uncoded 01/04/18 01:35 Review of Systems <ELAINE Zarate - Last Filed: 04/20/20 18:37> Review of Systems Narrative: GENERAL: Denies chills, fatigue, malaise, fever, sweats. HEENT: Denies sinus pain, ear pain, sore throat, difficulty swallowing, dizziness. RESPIRATORY: Denies dyspnea, cough, wheezing, hemoptysis, sputum. CARDIOVASCULAR: Denies chest pain, palpitations, orthopnea, edema, GASTROINTESTINAL: Denies nausea, vomiting, abdominal pain, diarrhea, constipation, melena. : Denies dysuria, frequency, incontinence, hematuria, urinary retention. MUSCULOSKELETAL: See HPI SKIN: Denies rash, skin lesions, or other NEUROLOGIC: Denies weakness, headache, numbness, change in speech, confusion, seizures, incoordination. PSYCHIATRIC: No concerning psychosocial issues. 12 point review of systems is negative except for those stated above Patient History <VIVIANE Zarate - Last Filed: 04/20/20 18:37> Medical History (Updated 04/23/20 @ 10:26 by Carey Key DO) Diverticulosis (Acute) Hyperlipemia (Acute) Hypertension (Acute) Hypokalemia (Acute) Hypothyroidism (Acute) Surgical History S/P tendon repair (Acute) Social History household members: none Smoking Status: Never smoker alcohol intake: current Smoking Status: Never smoker alcohol intake frequency: a few times a week Substance Use Type: does not use Exam <ELAINE Zarate - Last Filed: 04/20/20 18:37> Narrative Exam Narrative: GENERAL: This is a well-nourished, well-developed patient, in no acute distress HEAD: Atraumatic. Normocephalic. No temporal or scalp tenderness. EYES: Pupils equal round and reactive. Extraocular motions intact. No scleral icterus. No injection or drainage. ENT: Nose without bleeding, purulent drainage or septal hematoma. Wearing a mask. Airway patent. NECK: Trachea midline. No JVD or lymphadenopathy. Supple, nontender, no meningeal signs. CARDIOVASCULAR: Regular rate and rhythm RESPIRATORY: Clear to auscultation. Breath sounds equal bilaterally. No wheezes, rales, or rhonchi. No cough. No increased respiratory effort no accessory muscle use. GASTROINTESTINAL: Abdomen soft, non-tender, nondistended. No hepato- splenomegaly, or palpable masses. No guarding. EXTREMITIES: +1 to 2 swelling on left lower leg. Capillary refill less than 2 seconds all toes left foot. Positive pedal pulses left foot. Able to fully flex and extend left leg. BACK: Nontender without deformity or crepitance. No flank tenderness. NEURO: AOx3. SKIN: No rash or erythema on visible skin. Slight erythema noted generalized left leg. No obvious laceration or abrasion. Initial Vital Signs Initial Vital Signs: Vital Signs Temperature 98.3 F 04/20/20 13:31 Pulse Rate 95 H 04/20/20 13:31 Respiratory Rate 14 04/20/20 13:31 Blood Pressure 113/59 L 04/20/20 13:31 Pulse Oximetry 98 04/20/20 13:31 <Annmarie Norman DO - Last Filed: 04/24/20 07:57> Initial Vital Signs Initial Vital Signs: Vital Signs Temperature 98.3 F 04/20/20 13:31 Pulse Rate 95 H 04/20/20 13:31 Respiratory Rate 14 04/20/20 13:31 Blood Pressure 113/59 L 04/20/20 13:31 Pulse Oximetry 98 04/20/20 13:31 Scores <ELAINE Zarate - Last Filed: 04/20/20 18:37> GCS [place] coma scale eye opening: Spontaneous [place] coma scale verbal response: Orientated [place] coma scale motor response: Obey commands [place] coma scale total score: 15 Course <ELAINE Zarate - Last Filed: 04/20/20 18:37> Orders Ordered: Discontinued Medications Rivaroxaban (Xarelto) 15 mg PO NOW ONE Stop: 04/20/20 16:17 Last Admin: 04/20/20 16:28 Dose: 15 mg Documented by: TOSHA Vital Signs Vital signs: Vital Signs - 8 hr 04/20/20 13:31 04/20/20 15:12 04/20/20 16:31 Temperature 98.3 F Pulse Rate 95 H 82 87 Respiratory Rate 14 18 Blood Pressure 113/59 L 125/64 Pulse Oximetry 98 97 98 04/20/20 17:26 Temperature Pulse Rate 74 Respiratory Rate 18 Blood Pressure 109/53 L Pulse Oximetry 97 <Annmarie Norman DO - Last Filed: 04/24/20 07:57> Orders Ordered: Discontinued Medications Rivaroxaban (Xarelto) 15 mg PO NOW ONE Stop: 04/20/20 16:17 Last Admin: 04/20/20 16:28 Dose: 15 mg Documented by: TOSHA Vital Signs Vital signs: Vital Signs - 8 hr 04/20/20 13:31 04/20/20 15:12 04/20/20 16:31 Temperature 98.3 F Pulse Rate 95 H 82 87 Respiratory Rate 14 18 Blood Pressure 113/59 L 125/64 Pulse Oximetry 98 97 98 04/20/20 17:26 Temperature Pulse Rate 74 Respiratory Rate 18 Blood Pressure 109/53 L Pulse Oximetry 97 MDM - Extremity (Nontraumatic) <JUAN Zarate-BC - Last Filed: 04/20/20 18:37> Lab Data Result diagrams: 04/20/20 15:45 04/20/20 15:45 Labs: Lab Results 04/20/20 04/20/20 04/20/20 Range/Units 15:45 15:45 15:45 WBC 12.0 H (4.5-11.0) X10^3/uL RBC 3.98 L (4.0-5.2) X10^6/uL Hgb 12.5 (12.0-16.0) g/dL Hct 37.6 (36-46) % MCV 94.4 (80-100) fL MCH 31.3 (26-34) PG MCHC 33.2 (30-36) % RDW 14.1 (11.6-14.8) % Plt Count 189 (150-400) X10^3/uL Neut % (Auto) 68.9 (50-75) % Lymph % (Auto) 18.6 L (25-40) % [place] % (Auto) 9.6 (3-14) % Eos % (Auto) 2.1 (2-4) % Baso % (Auto) 0.8 (0-2) % Neut # (Auto) 8300 H (4323-3749) /uL Lymph # (Auto) 2200 (7110-6905) /uL [place] # (Auto) 1200 H (0-900) /uL Eos # (Auto) 300 (0-450) /uL Baso # (Auto) 100 (0-100) /uL PT 12.5 (10.1-12.7) SECONDS INR 1.1 (0.9-1.3) APTT 26 L (26.4-36.2) SECONDS Sodium 137 (137-145) mmol/L Potassium 4.3 (3.4-5.1) mmol/L Chloride 104 (98-107) mmol/L Carbon Dioxide 28 (22-32) mmol/L BUN 16 (7-17) mg/dL Creatinine 0.85 (0.52-1.04) mg/dL Estimated GFR > 60.0 (>60) mL/min BUN/Creatinine Ratio 18.8 (6-22) Glucose 130 H (80-110) mg/dL Calcium 8.1 L (8.4-10.2) mg/dL Total Bilirubin 0.4 (0.2-1.3) mg/dL AST 18 (14-36) IU/L ALT 13 (<35) IU/L Alkaline Phosphatase 61 (38-126) U/L Total Protein 7.2 (6.3-8.2) g/dL Albumin 3.7 (3.5-5.0) g/dL Globulin 3.5 (1.7-4.1) g/dL Albumin/Globulin Ratio 1.1 (1.0-2.8) Urine Dip Bedside Urine Glucose Negative Bedside Urine Bilirubin - Negative Bedside Urine Ketone - Negative Urine Specific [place] 1.030 Bedside Urine Occult Blood - Negative Bedside Urine pH 6.0 Bedside Urine Protein +/- 15 Bedside Urine Urobilinogen - Negative Bedside Urine Nitrite - Negative Bedside Urine Leukocytes - Negative Esterase Imaging Data US - DVT: Radiologist's Impression: [address] [place] [id number] Ultrasound Report Signed Patient: Rebecca Eugene JMR#: [id number] : 4Acct:[id number] Age/Sex: 74 / FDate of Service: 04/20/20 Loc: ED Accession Number: [id number] Procedure: US periph venous low extrem lt Ordering Provider: Annmarie Kapoor [employer]ADER [employer]KER- PROCEDURE: US PERIPH VENOUS LOW EXTREM LT INDICATIONS: LEFT LEG SWELLING TECHNIQUE: Real-time imaging, as well as color and pulse Doppler interrogation, were performed of the lower extremity deep veins from the inguinal ligament to the popliteal fossa. COMPARISON: None. FINDINGS: There are occlusive filling defects involving the common femoral, femoral and popliteal veins are normally compressible, and free of intraluminal thrombus. Color and pulse Doppler demonstrate normal phasic intraluminal flow. There is normal augmentation response to distal compression maneuver. Occlusive filling defect is also seen in greater saphenous vein. IMPRESSION: Extensive occlusive deep venous thrombosis of the left lower extremity. The result was discussed with Annmarie Kapoor. Dictated by: Win Stevenson M.D. on 04/20/2020 at 15:21 Approved by: Win Stevenson M.D. on 04/20/2020 at 15:28 MDM Narrative Medical decision making narrative: The patient is a 74-year-old female who presents with a chief complaint of left lower leg pain and swelling ongoing for several days. She denies better cough and extensive DVT, warm foot, but pulses. Given the patient's ultrasound report, spoke with Dr Norman regarding plan. Discussed starting her on Xarelto, 1st dose in the emergency department. Collecting baseline labs. The patient used to see Dr. Gustafson, who retired, so I spoke with Dr. Phillips on-call for the patient's office, and she is happy to ensure follow-up. Patient has no chest pain or shortness of breath, no history of GI bleeds and is not on blood thinners. I discussed at length the risk of bleeding, GI bleeding, head bleed, spontaneous head bleed, bleeding after head trauma. Discussed this with Mary TURNER at bedside. Discussed with patient's son. Discussed at length coming back to ER for any acute concerns such as chest pain shortness of breath. Patient's plan and treatment discussed with Dr Norman. Patient has no questions or concerns upon discharge and states understanding of return precautions as well as follow-up care. <Annmarie Norman, DO - Last Filed: 04/24/20 07:57> Lab Data Labs: Lab Results 04/20/20 04/20/20 04/20/20 Range/Units 15:45 15:45 15:45 WBC 12.0 H (4.5-11.0) X10^3/uL RBC 3.98 L (4.0-5.2) X10^6/uL Hgb 12.5 (12.0-16.0) g/dL Hct 37.6 (36-46) % MCV 94.4 (80-100) fL MCH 31.3 (26-34) PG MCHC 33.2 (30-36) % RDW 14.1 (11.6-14.8) % Plt Count 189 (150-400) X10^3/uL Neut % (Auto) 68.9 (50-75) % Lymph % (Auto) 18.6 L (25-40) % [place] % (Auto) 9.6 (3-14) % Eos % (Auto) 2.1 (2-4) % Baso % (Auto) 0.8 (0-2) % Neut # (Auto) 8300 H (8626-4468) /uL Lymph # (Auto) 2200 (8143-7798) /uL [place] # (Auto) 1200 H (0-900) /uL Eos # (Auto) 300 (0-450) /uL Baso # (Auto) 100 (0-100) /uL PT 12.5 (10.1-12.7) SECONDS INR 1.1 (0.9-1.3) APTT 26 L (26.4-36.2) SECONDS Sodium 137 (137-145) mmol/L Potassium 4.3 (3.4-5.1) mmol/L Chloride 104 (98-107) mmol/L Carbon Dioxide 28 (22-32) mmol/L BUN 16 (7-17) mg/dL Creatinine 0.85 (0.52-1.04) mg/dL Estimated GFR > 60.0 (>60) mL/min BUN/Creatinine Ratio 18.8 (6-22) Glucose 130 H (80-110) mg/dL Calcium 8.1 L (8.4-10.2) mg/dL Total Bilirubin 0.4 (0.2-1.3) mg/dL AST 18 (14-36) IU/L ALT 13 (<35) IU/L Alkaline Phosphatase 61 (38-126) U/L Total Protein 7.2 (6.3-8.2) g/dL Albumin 3.7 (3.5-5.0) g/dL Globulin 3.5 (1.7-4.1) g/dL Albumin/Globulin Ratio 1.1 (1.0-2.8) Urine Dip Bedside Urine Glucose Negative Bedside Urine Bilirubin - Negative Bedside Urine Ketone - Negative Urine Specific [place] 1.030 Bedside Urine Occult Blood - Negative Bedside Urine pH 6.0 Bedside Urine Protein +/- 15 Bedside Urine Urobilinogen - Negative Bedside Urine Nitrite - Negative Bedside Urine Leukocytes - Negative Esterase Discharge Plan Departure Patient Disposition: Home Clinical Impression: Deep vein thrombosis of lower extremity Qualifiers: Affected thrombotic vein of extremity: unspecified vein of extremity Core Measures Abstractor nicity: acute Laterality: left Qualified Code(s): I82.402 - Acute embolism and thrombosis of unspecified deep veins of left lower extremity Discharge Date/Time: 04/20/20 17:40 Instructions: DI for Deep Vein Thrombosis, Rivaroxaban Activity Restrictions/Additional Instructions: Thank you for trusting us with your care today. As I discussed, you have a blood clot in your left leg I have given you a prescription for blood thinners. Please continue to monitor for any signs of abnormal bleeding. Please be careful to not fall and hit your head. Please come back to the emergency department for any acute concerns such as adilia st pain or shortness of breath Please follow-up with primary care provider in the next few days. I spoke with Dr. Phillips, who is on-call for Dr. Gustafson' office, and she is happy to follow-up with you next week. Prescriptions: New Xarelto 15 mg tablet 15 mg PO BID 21 Days Qty: 42 RF: 0 No Action spironolactone [Aldactone] 25 MG tablet 50 mg PO QDAY Qty: 0 RF: 0 potassium chloride 20 mEq Tablet Extended Release 20 meq PO BID Qty: 0 RF: 0 citalopram 20 mg tablet 20 mg PO DAILY RF: 0 estradiol 2 mg tablet 0.5 tab PO DAILY RF: 0 hydroxyzine pamoate 25 mg capsule 1 - 2 cap PO DAILY RF: 0 metoprolol tartrate 50 mg tablet 1 tab PO BID RF: 0 levothyroxine 150 mcg tablet 1 tab PO DAILY RF: 0 mometasone 0.1 % solution 1 applic Topical BID RF: 0 oxycodone 5 mg tablet 5 mg PO Q6-12H PRN (Reason: Pain, Moderate (4-6)) Qty: 30 RF: 0 Referrals: Sera Phillips MD [Physician] - Sai Gustafson MD [Primary Care Provider] - <Annmarie Norman DO - Last Filed: 04/24/20 07:57> Cosign ED Attending Cosignature Attestation: I was immediately available in the department for consultation. This documentation has been reviewed and I agree with assessment and plan. Supervised by Annmarie Norman DO
== END 2020-04-20 17:40 | disposition home or self-care (01) ==
PROVIDERS: Emergency Provider Nurse Practitioner Family; PCP Family Medicine
DX: I82.402 Acute embolism and thrombosis of unspecified deep veins of left lower extremity (principal); I48.91 Unspecified atrial fibrillation; Z79.01 Long term (current) use of anticoagulants
CPT/HCPCS: 36415; 80053; 81003; 85025; 85610; 85730; 93971; 99284

== ENCOUNTER 2020-04-23 09:32 | Emergency (ER) | payer MEDICARE, SELFPAY ==
[2018-01-04 09:18] VITALS: BMI 30.2
[2020-04-23 09:32] VITALS: BP 199/85; PULSE 81; RESP 16; TEMP 36.4; O2SAT 100
--- NOTE | 2020-04-23 09:35 | DI.RAD.S_ITS ---
PROCEDURE: XR KNEE RT 3V INDICATIONS: Pain, no injury TECHNIQUE: 3 views of the knee were acquired. COMPARISON: None. FINDINGS: Bones: No fractures or dislocations. No suspicious bony lesions. Soft tissues: No joint effusion. No suspicious soft tissue calcifications. IMPRESSION: No acute finding. Dictated by: Bo Rai M.D. on 04/23/2020 at 9:54 Approved by: Bo Rai M.D. on 04/23/2020 at 9:54
[2020-04-23 09:40] VITALS: PULSE 70
[2020-04-23] MEDS: ACETAMINOPHEN 325 MG TABLET 650 MG PO (09:50)
--- NOTE | 2020-04-23 10:11 | ED.EXTPRO ---
HPI - Extremity Problem General Chief complaint: Extremity Problem,Nontraumatic Stated complaint: Rt knee pain Time Seen by Provider: 04/23/20 09:33 Source: patient and EMS Mode of arrival: EMS Limitations: no limitations History of Present Illness HPI Narrative: PATIENT IS A 74-YEAR-OLD FEMALE who was diagnosed with a DVT of the left leg 4 days ago. She was post be started on Xarelto however Lovenox is noted on her med list. Her left leg continues to be swollen. Today she says she woke up and her right kneecap hurt it hurts so bad that she is unable to get out of bed. She denies injuring it she was unable to take any medication for it. There appears to be no swelling of her right leg. She denies any chest pain or shortness of breath. MD Complaint: extremity pain Related Data Home Medications Medication Instructions Recorded Confirmed potassium chloride 20 meq PO BID #0 04/23/12 01/04/18 spironolactone [Aldactone] 50 mg PO QDAY #0 04/23/12 01/04/18 citalopram 20 mg PO DAILY 01/04/18 01/04/18 estradiol 0.5 tab PO DAILY 01/04/18 01/04/18 hydroxyzine pamoate 1 - 2 cap PO DAILY 01/04/18 01/04/18 levothyroxine 1 tab PO DAILY 01/04/18 01/04/18 metoprolol tartrate 1 tab PO BID 01/04/18 01/04/18 mometasone 1 applic TOPICAL BID 01/04/18 01/04/18 Previous Rx's Medication Instructions Recorded oxycodone 5 mg PO Q6-12H PRN #30 tab 01/06/18 rivaroxaban [Xarelto] 15 mg PO BID 21 Days #42 tab 04/20/20 Allergies Allergy/AdvReac Type Severity Reaction Status Date / Time etodolac [ETODOLAC] Allergy Unknown hives Verified 04/20/20 13:41 hydromorphone [From Dilaudid] AdvReac facial Verified 04/20/20 13:41 itching, runny nose BEE STINGS Allergy Unknown Uncoded 01/04/18 01:35 Review of Systems Review of Systems Narrative: GENERAL: Denies chills, fatigue, malaise, fever, sweats, travel HEENT: Denies sinus pain, ear pain, sore throat, difficulty swallowing, neck pain RESPIRATORY: Denies dyspnea, cough, wheezing, hemoptysis, sputum. CARDIOVASCULAR: Denies chest pain, palpitations, orthopnea, edema GASTROINTESTINAL: Denies nausea, vomiting, abdominal pain, diarrhea, constipation, melena. : Denies dysuria, frequency, incontinence, hematuria, urinary retention, flank pain. MUSCULOSKELETAL: See HPI SKIN: No rash, no erythema, no pruritus NEUROLOGIC: Denies weakness, dizziness, headache, numbness, change in speech, confusion PSYCHIATRIC: No concerning psychosocial issues. 12 point review of systems is negative except for those stated above and HPI Patient History Medical History Diverticulosis (Acute) Hyperlipemia (Acute) Hypertension (Acute) Hypokalemia (Acute) Hypothyroidism (Acute) Surgical History S/P tendon repair (Acute) Social History household members: none Smoking Status: Never smoker alcohol intake: current Smoking Status: Never smoker alcohol intake frequency: a few times a week Substance Use Type: does not use Exam Initial Vital Signs Initial Vital Signs: Vital Signs Temperature 97.5 F L 04/23/20 09:32 Pulse Rate 81 04/23/20 09:32 Respiratory Rate 16 04/23/20 09:32 Blood Pressure 199/85 H 04/23/20 09:32 Pulse Oximetry 100 04/23/20 09:32 GENERAL: Alert well-appearing female and in no acute distress. HEENT: Head atraumatic,EOMI, pupils reactive, face symmetric, moist mucous membranes CARDIOVASCULAR: Regular rate and rhythm without murmurs, rubs or gallops. RESPIRATORY: Breath sounds equal bilaterally, no wheezes rales or rhonchi. EXTREMITIES: Normal range of motion, no clubbing or edema. Neurovascularly intact Significant swelling of left leg with good distal pedal pulse. All right leg is not swollen she is unable to flex knee secondary to pain. There is no erythema there is no swelling no rash. Hips are nontender. Right foot also has good distal pedal pulse NEUROLOGICAL: Alert and oriented x4. SKIN: Warm, dry, no laceration, no petechiae, no rashes or lesions. Course Orders Ordered: ED Orders 04/23/20 09:35 XR knee RT 3V Stat Discontinued Medications Acetaminophen (Tylenol) 650 mg PO NOW ONE Stop: 04/23/20 09:36 Last Admin: 04/23/20 09:50 Dose: 650 mg Documented by: BTONER Vital Signs Vital signs: Vital Signs - 8 hr 04/23/20 09:32 04/23/20 09:40 04/23/20 10:38 Temperature 97.5 F L Pulse Rate 81 84 Pulse Rate [Right Dorsalis Pedis] 70 Respiratory Rate 16 16 Blood Pressure 199/85 H 186/84 H Pulse Oximetry 100 99 MDM - Extremity (Nontraumatic) Imaging Data Extremity x-ray #1: Radiologist's Impression: PROCEDURE: XR KNEE RT 3V INDICATIONS: Pain, no injury TECHNIQUE: 3 views of the knee were acquired. COMPARISON: None. FINDINGS: Bones: No fractures or dislocations. No suspicious bony lesions. Soft tissues: No joint effusion. No suspicious soft tissue calcifications. IMPRESSION: No acute finding. [facility] Narrative Medical decision making narrative: Patient is uncomfortable in bed she is bending her knee on wanting to get out of bed. At this time there is no abnormality of the right leg. She is unsure when she is supposed to see her PCP. I strongly recommend she call them Friday morning there seems to be does some discrepancy in her medication. They are states she was started on Xarelto however Lovenox is listed none last she is anticoagulated for her left leg DVT. She again is not tachycardic short of breath or having any pulmonary symptoms. Discharge Plan Departure Patient Disposition: Home Clinical Impression: Right knee sprain Qualifiers: Encounter type: initial encounter Involved ligament of knee: unspecified ligament Qualified Code(s): S83.91XA - Sprain of unspecified site of right knee, initial encounter Discharge Date/Time: 04/23/20 10:52 Instructions: DI for Knee Pain Activity Restrictions/Additional Instructions: *You have been diagnosed with right knee pain *What to do: At this time her x-rays negative on her right leg. You still have a blood clot on the left leg. Is extremely important that he follow up with her primary care provider Dr. Phillips for your left leg. *Be sure to call her tomorrow morning to schedule an appointment for this week *Continue to take medications as directed Tylenol 650 mg every 4-6 hours if needed for [id number] pain Please avoid NSAIDs such as Motrin, Aleve, ibuprofen, naproxen etc-will increase risk of bleeding *Return to ER if you should have breath, palpitations, passingout or any new, worsening or concerning symptoms Prescriptions: No Action spironolactone [Aldactone] 25 MG tablet 50 mg PO QDAY Qty: 0 RF: 0 potassium chloride 20 mEq Tablet Extended Release 20 meq PO BID Qty: 0 RF: 0 citalopram 20 mg tablet 20 mg PO DAILY RF: 0 estradiol 2 mg tablet 0.5 tab PO DAILY RF: 0 hydroxyzine pamoate 25 mg capsule 1 - 2 cap PO DAILY RF: 0 metoprolol tartrate 50 mg tablet 1 tab PO BID RF: 0 levothyroxine 150 mcg tablet 1 tab PO DAILY RF: 0 mometasone 0.1 % solution 1 applic Topical BID RF: 0 oxycodone 5 mg tablet 5 mg PO Q6-12H PRN (Reason: Pain, Moderate (4-6)) Qty: 30 RF: 0 Xarelto 15 mg tablet 15 mg PO BID 21 Days Qty: 42 RF: 0 Referrals: Sera Phillips MD [Physician] -
[2020-04-23 10:38] VITALS: BP 186/84; PULSE 84; RESP 16; O2SAT 99
== END 2020-04-23 10:52 | disposition home or self-care (01) ==
PROVIDERS: Emergency Provider Emergency Medicine
DX: S83.91XA Sprain of unspecified site of right knee, initial encounter (principal); I82.402 Acute embolism and thrombosis of unspecified deep veins of left lower extremity
CPT/HCPCS: 73562; 99283

== ENCOUNTER → 2020-04-23 13:33 | Outpatient (ROUT) | payer MEDICARE, SELFPAY ==
[2018-01-04 09:18] VITALS: BMI 30.2
[2020-04-23 13:57] LABS: INR 1.2 (0.9-1.3); Prothrombin Time 13.8 SECONDS (10.1-12.7)
== END ==
PROVIDERS: Visit Provider Family Medicine
DX: Z51.81 Encounter for therapeutic drug level monitoring (principal)
CPT/HCPCS: 36415; 85610

== ENCOUNTER → 2020-04-25 12:51 | Outpatient (CLI) | payer MEDICARE, SELFPAY ==
[2018-01-04 09:18] VITALS: BMI 30.2
[2020-04-25 15:39] LABS: INR 1.7 (0.9-1.3); Prothrombin Time 19.8 SECONDS (10.1-12.7)
== END ==
PROVIDERS: Referring Provider Family Medicine; Visit Provider Family Medicine
DX: Z79.01 Long term (current) use of anticoagulants (principal)
CPT/HCPCS: 36415; 85610

== ENCOUNTER → 2020-04-27 15:36 | Outpatient (ROUT) | payer MEDICARE, SELFPAY ==
[2018-01-04 09:18] VITALS: BMI 30.2
[2020-04-27 15:42] LABS: Prothrombin Time 54.2 SECONDS (10.1-12.7)
[2020-04-27 15:45] LABS: INR 4.8 (0.9-1.3)
== END ==
PROVIDERS: Visit Provider Student in an Organized Health Care Education/Training Program
DX: I80.209 Phlebitis and thrombophlebitis of unspecified deep vessels of unspecified lower extremity (principal)
CPT/HCPCS: 85610

== ENCOUNTER → 2020-05-03 10:26 | Outpatient (CLI) | payer MEDICARE, SELFPAY ==
[2018-01-04 09:18] VITALS: BMI 30.2
[2020-05-03 12:50] LABS: Prothrombin Time 75.7 SECONDS (10.1-12.7)
[2020-05-03 13:03] LABS: INR 6.7 (0.9-1.3)
== END ==
PROVIDERS: Referring Provider Student in an Organized Health Care Education/Training Program; Visit Provider Student in an Organized Health Care Education/Training Program
DX: I82.409 Acute embolism and thrombosis of unspecified deep veins of unspecified lower extremity (principal)
CPT/HCPCS: 36415; 85610

== ENCOUNTER → 2020-05-05 10:29 | Outpatient (CLI) | payer MEDICARE, SELFPAY ==
[2018-01-04 09:18] VITALS: BMI 30.2
[2020-05-05 11:42] LABS: INR 3.8 (0.9-1.3); Prothrombin Time 43.4 SECONDS (10.1-12.7)
== END ==
PROVIDERS: Referring Provider Student in an Organized Health Care Education/Training Program; Visit Provider Student in an Organized Health Care Education/Training Program
DX: I82.409 Acute embolism and thrombosis of unspecified deep veins of unspecified lower extremity (principal)
CPT/HCPCS: 36415; 85610

== ENCOUNTER → 2020-05-12 08:16 | Outpatient (ROUT) | payer MEDICARE, SELFPAY ==
[2018-01-04 09:18] VITALS: BMI 30.2
[2020-05-12 09:15] LABS: INR 2.2 (0.9-1.3); Prothrombin Time 25.3 SECONDS (10.1-12.7)
== END ==
DX: I82.409 Acute embolism and thrombosis of unspecified deep veins of unspecified lower extremity (principal)
CPT/HCPCS: 36415; 85610

== ENCOUNTER → 2020-05-19 12:23 | Outpatient (CLI) | payer MEDICARE, SELFPAY ==
[2018-01-04 09:18] VITALS: BMI 30.2
[2020-05-19 13:34] LABS: INR 2.1 (0.9-1.3); Prothrombin Time 24.5 SECONDS (10.1-12.7)
== END ==
PROVIDERS: PCP Student in an Organized Health Care Education/Training Program; Referring Provider Student in an Organized Health Care Education/Training Program; Visit Provider Student in an Organized Health Care Education/Training Program
DX: I48.91 Unspecified atrial fibrillation (principal)
CPT/HCPCS: 36415; 85610

== ENCOUNTER → 2020-06-02 13:37 | Outpatient (CLI) | payer MEDICARE, SELFPAY ==
[2018-01-04 09:18] VITALS: BMI 30.2
[2020-06-02 14:43] LABS: INR 2.1 (0.9-1.3); Prothrombin Time 24.5 SECONDS (10.1-12.7)
== END ==
PROVIDERS: PCP Student in an Organized Health Care Education/Training Program; Referring Provider Student in an Organized Health Care Education/Training Program; Visit Provider Student in an Organized Health Care Education/Training Program
DX: Z79.01 Long term (current) use of anticoagulants (principal)
CPT/HCPCS: 36415; 85610

== ENCOUNTER → 2020-06-14 13:31 | Outpatient (CLI) | payer MEDICARE, SELFPAY ==
[2018-01-04 09:18] VITALS: BMI 30.2
[2020-06-14 15:48] LABS: INR 2.1 (0.9-1.3); Prothrombin Time 24.2 SECONDS (10.1-12.7)
== END ==
PROVIDERS: PCP Student in an Organized Health Care Education/Training Program; Referring Provider Student in an Organized Health Care Education/Training Program; Visit Provider Student in an Organized Health Care Education/Training Program
DX: I82.409 Acute embolism and thrombosis of unspecified deep veins of unspecified lower extremity (principal)
CPT/HCPCS: 36415; 85610

== ENCOUNTER → 2020-06-28 08:21 | Outpatient (ROUT) | payer OTHER, SELFPAY ==
[2018-01-04 09:18] VITALS: BMI 30.2
[2020-06-28 09:20] LABS: Prothrombin Time 23.2 SECONDS (10.1-12.7)
== END ==
PROVIDERS: PCP Student in an Organized Health Care Education/Training Program; Visit Provider Family Medicine
DX: I82.409 Acute embolism and thrombosis of unspecified deep veins of unspecified lower extremity (principal)
CPT/HCPCS: 36415; 85610

== ENCOUNTER → 2020-08-02 07:35 | Outpatient (ROUT) | payer OTHER, SELFPAY ==
[2018-01-04 09:18] VITALS: BMI 30.2
[2020-08-02 08:43] LABS: INR 2.6 (0.9-1.3); Prothrombin Time 29.3 SECONDS (10.1-12.7)
== END ==
PROVIDERS: PCP Student in an Organized Health Care Education/Training Program; Visit Provider Student in an Organized Health Care Education/Training Program
DX: Z92.29 Personal history of other drug therapy (principal)
CPT/HCPCS: 36415; 85610

== ENCOUNTER 2020-08-28 12:48 | Emergency (ER) | payer OTHER, SELFPAY ==
[2018-01-04 09:18] VITALS: BMI 30.2
[2020-08-28] VITALS (7 sets, daily range): BP systolic 128–169; BP diastolic 60–71; PULSE 59–74; RESP 24; TEMP 36.6; O2SAT 93–99
--- NOTE | 2020-08-28 12:56 | DI.CT.S_ITS ---
PROCEDURE: CT HEAD/BRAIN WO CON INDICATIONS: hit head on coumadin. TECHNIQUE: Noncontrast 4.5 mm thick angled axial sections acquired from the foramen magnum to the vertex, with coronal and sagittal reformats. For radiation dose reduction, the following was used: automated exposure control, adjustment of mA and/or kV according to patient size. COMPARISON: None. FINDINGS: Image quality: Excellent. CSF spaces: Basal cisterns are patent. No extra-axial fluid collections. The ventricles are symmetric in size and shape. Brain: No intracranial bleeds or masses. There is cerebral volume loss for age, with resultant ventricular and sulcal prominence. There are periventricular and deep white matter chronic small vessel ischemic changes. There is intracranial internal carotid artery atherosclerosis. Skull and face: Calvarium and visualized facial bones appear intact, without suspicious lesions. Sinuses: Visualized sinuses and mastoids are clear. IMPRESSION: No trauma found. No intracranial hemorrhage. Dictated by: Clarke Moralez M.D. on 08/28/2020 at 12:22 Approved by: Clarke Moralez M.D. on 08/28/2020 at 12:23
--- NOTE | 2020-08-28 12:57 | DI.CT.S_ITS ---
PROCEDURE: CT CERVICAL SPINE WO CON INDICATIONS: fall hit head on thinners. TECHNIQUE: Noncontrast 3 mm thick sections acquired from the skull base to the T4 level. Sagittal and coronal reformats were then constructed. For radiation dose reduction, the following was used: automated exposure control, adjustment of mA and/or kV according to patient size. COMPARISON: None. FINDINGS: Image quality: Excellent. Bones: No fractures or dislocations. Visualized superior ribs are intact. 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 Soft tissues: Prevertebral soft tissues are normal in thickness. No paravertebral hematomas. No apical pneumothoraces. IMPRESSION: Degenerative changes, but no trauma found. Dictated by: Clarke Moralez M.D. on 08/28/2020 at 12:23 Approved by: Clarke Moralez M.D. on 08/28/2020 at 12:26
--- NOTE | 2020-08-28 13:02 | DI.RAD.S_ITS ---
PROCEDURE: XR CHEST 1V INDICATIONS: modified trauma, fall on coumadin TECHNIQUE: One view of the chest was acquired. COMPARISON: [facility], CR, XR CHEST 1V, 01/04/2018, 3:23. FINDINGS: Surgical changes and devices: Surgical clips bilaterally in the thyroid area.. Lungs and pleura: Lungs are clear. No pleural effusions or pneumothorax. Mediastinum: Mediastinal contours appear normal. Heart size is normal. Bones and chest wall: No suspicious bony lesions. Overlying soft tissues appear unremarkable. IMPRESSION: Surgical clips bilaterally in the thyroid area. No trauma found. Dictated by: Clarke Moralez M.D. on 08/28/2020 at 12:41 Approved by: Clarke Moralez M.D. on 08/28/2020 at 12:41
--- NOTE | 2020-08-28 13:05 | ED.FALL ---
HPI - Fall <WILMAN Russo - Last Filed: 08/28/20 16:08> General Chief Complaint: Trauma Stated Complaint: fell this morning, on blood thinners, dizzy Time Seen by Provider: 08/28/20 12:54 Source: patient Mode of arrival: Wheelchair Limitations: other (History of dementia) History of Present Illness HPI Narrative: This is a 74 year female who is from [facility] assisted living and has medical history significant for AFib and who currently takes Coumadin, dementia, hyperlipidemia, hypokalemia, generalize weakness, hypertension, depression presents to ED with staff member on wheelchair with chief complain of fall and hit head on side table. Initially her neuro check was within normal but staff noticed unsteady gait and chief complain of dizziness. She was referral to emergency room for an evaluation. Patient denies headache, vision change, any discomfort at this time. Patient is oriented to place, self, date of but not to her age. Patient does not remember a fall but reports she has been going to the bathroom frequently for urination. Given patient's history of Coumadin use for AFib and fall, modified trauma has been called. Related Data Home Medications Medication Instructions Recorded Confirmed potassium chloride 20 meq PO BID #0 04/23/12 08/28/20 spironolactone [Aldactone] 50 mg PO QDAY #0 04/23/12 08/28/20 citalopram 20 mg PO DAILY 01/04/18 08/28/20 estradiol 1 tab PO DAILY 01/04/18 08/28/20 hydroxyzine pamoate 1 - 2 cap PO DAILY 01/04/18 01/04/18 levothyroxine 1 tab PO DAILY 01/04/18 08/28/20 metoprolol tartrate 1 tab PO BID 01/04/18 08/28/20 mometasone 1 applic TOPICAL BID 01/04/18 01/04/18 Aspir-81 81 mg PO DAILY 08/28/20 08/28/20 memantine 5 mg PO BID 08/28/20 08/28/20 warfarin 2 mg PO DAILY 08/28/20 08/28/20 Previous Rx's Medication Instructions Recorded oxycodone 5 mg PO Q6-12H PRN #30 tab 01/06/18 Allergies Allergy/AdvReac Type Severity Reaction Status Date / Time etodolac [ETODOLAC] Allergy Unknown hives Verified 04/20/20 13:41 hydromorphone [From Dilaudid] AdvReac facial Verified 04/20/20 13:41 itching, runny nose BEE STINGS Allergy Unknown Uncoded 01/04/18 01:35 Review of Systems <WILMAN Russo - Last Filed: 08/28/20 16:08> Review of Systems Narrative: General: Denies fever, chills, (+) per caregiver fatigue, malaise, sweats. HEENT: Denies sinus pain, ear pain, sore throat, difficulty swallowing, dizziness. Respiratory: Denies dyspnea, cough, wheezing, hemoptysis, sputum. Cardiovascular: Denies chest pain, palpitations, orthopnea, edema. Gastrointestinal: Denies nausea, vomiting, abdominal pain, diarrhea, constipation, melena. : Denies dysuria, frequency, incontinence, hematuria, urinary retention. Musculoskeletal: See HPI Skin: Denies rash, skin lesions, or other. Neurologic: Denies weakness, headache, numbness, change in speech, confusion, seizures, (+) per child care centre director incoordination. Psychiatric: No concerning psychosocial issues. 12-point review of systems is negative except for those stated above. Patient History <WILMAN Russo - Last Filed: 08/28/20 16:08> Medical History (Updated 08/28/20 @ 14:33 by WILMAN Russo) Diverticulosis Hyperlipemia Hypertension Hypokalemia Hypothyroidism Surgical History S/P tendon repair Social History household members: none Smoking Status: Never smoker alcohol intake: current Smoking Status: Never smoker alcohol intake frequency: a few times a week Substance Use Type: does not use Exam <WILMAN Russo - Last Filed: 08/28/20 16:08> Narrative Exam Narrative: GEN: Alert, oriented x 2, well appearing and nourished, and in no acute distress. Head: Normal cephalic, atraumatic, no step-offs. No scalp or temporal tenderness, palpable mass or rash. Right side lateral corner of the eye with mild bruise. EYES: Pupils are equal, round, and reactive to light and accommodation. Extraocular muscles are intact bilaterally. There is no subconjunctival hemorrhage, exudate and sclera non-icteric. ENT: Bilateral auditory canals and tympanic membranes clear without hemotympanum or drainage. Hearing grossly intact. Nose without bleeding, purulent discharge or deviation. Facial sinuses nontender to palpate. Mucous membrane moist, no mucosal lesion. Throat without erythema, tonsillar hypertrophy or exudate. Uvula in midline, airway patent. Neck: Trachea in midline. No JVD, non-tender without lymphadenopathy. No masses or thyroid megaly. Supple, non-tender or step-offs and no meningeal signs. CARDIAC: Normal regular rate and rhythm without murmurs, gallops, or rubs. No chest wall tenderness. No peripheral edema, cyanosis or pallor. Capillary refill is less than 2 seconds. RESPIRATORY: Lungs are clear to auscultate bilaterally. No cough, wheezes, rales, or rhonchi. No stridor, respiratory distress, increase work of breathing, or accessary muscle used. ABD: Abdomen soft, nontender and non-distended. No guarding or rebound tenderness to palpate. Bowel sounds are normal in all 4 quadrants. There is no palpable masses or organomegaly. EXT: Full painless ROM of all extremities with no loss of sensation, strength, effusion or edema. SKIN: Warm, dry, normal color for patient. Multiple dried skin with patches on the face. No erythema, lesions or rash over visible areas. BACK: Nontender without deformity or crepitance. No flank tenderness. NEUROLOGICAL: Alert and oriented to place and person. Sensation and motor function intact bilaterally. No facial droops, dysphasia. PSYCHIATRIC: No hallucinations, abnormal affect or abnormal behaviors during the examination. Patient is not suicidal. Initial Vital Signs Initial Vital Signs: Vital Signs Temperature 97.9 F 08/28/20 12:50 Pulse Rate 59 L 08/28/20 12:50 Respiratory Rate 24 08/28/20 12:50 Blood Pressure 169/71 H 08/28/20 12:50 Pulse Oximetry 99 08/28/20 12:50 <Wang Foster, - Last Filed: 08/29/20 17:53> Initial Vital Signs Initial Vital Signs: Vital Signs Temperature 97.9 F 08/28/20 12:50 Pulse Rate 59 L 08/28/20 12:50 Respiratory Rate 24 08/28/20 12:50 Blood Pressure 169/71 H 08/28/20 12:50 Pulse Oximetry 99 08/28/20 12:50 Scores <Warren RobledoWILMAN Cordero - Last Filed: 08/28/20 16:08> GCS Gordy coma scale eye opening: Spontaneous Gordy coma scale verbal response: Confused Gordy coma scale motor response: Obey commands [place] coma scale total score: 14 Course <Warren ShahWILMAN Hendrix - Last Filed: 08/28/20 16:08> Orders Ordered: Discontinued Medications Sodium Chloride (Normal Saline 0.9%) 500 mls @ 1,000 mls/hr IV BOLUS ONE Stop: 08/28/20 14:25 Last Admin: 08/28/20 14:37 Dose: Not Given Documented by: JOSEPH Vital Signs Vital signs: Vital Signs - 8 hr 08/28/20 12:50 08/28/20 13:01 08/28/20 13:14 Temperature 97.9 F Pulse Rate 59 L 66 74 Respiratory Rate 24 Blood Pressure 169/71 H 169/71 H Pulse Oximetry 99 97 98 08/28/20 13:30 08/28/20 13:36 08/28/20 14:00 Temperature Pulse Rate 62 70 64 Respiratory Rate Blood Pressure 138/62 Pulse Oximetry 96 97 93 08/28/20 15:38 Temperature Pulse Rate 60 Respiratory Rate Blood Pressure 128/60 Pulse Oximetry 94 <Wang Foster DO - Last Filed: 08/29/20 17:53> Orders Ordered: Discontinued Medications Sodium Chloride (Normal Saline 0.9%) 500 mls @ 1,000 mls/hr IV BOLUS ONE Stop: 08/28/20 14:25 Last Admin: 08/28/20 14:37 Dose: Not Given Documented by: JOSEPH Vital Signs Vital signs: Vital Signs - 8 hr 08/28/20 12:50 08/28/20 13:01 08/28/20 13:14 Temperature 97.9 F Pulse Rate 59 L 66 74 Respiratory Rate 24 Blood Pressure 169/71 H 169/71 H Pulse Oximetry 99 97 98 08/28/20 13:30 08/28/20 13:36 08/28/20 14:00 Temperature Pulse Rate 62 70 64 Respiratory Rate Blood Pressure 138/62 Pulse Oximetry 96 97 93 08/28/20 15:38 Temperature Pulse Rate 60 Respiratory Rate Blood Pressure 128/60 Pulse Oximetry 94 MDM - Fall <Warren EDUARDO MárquezP - Last Filed: 08/28/20 16:08> Differential Diagnosis Differential diagnosis: Likely other (arrythmia, STEMI, CHI, ICH, electrolyte imbalance, UTI, anemia) Medical Records Attestation: I reviewed the patient's medical records. Lab Data Result diagrams: 08/28/20 13:25 08/28/20 13:25 Labs: Lab Results 08/28/20 08/28/20 08/28/20 Range/Units 13:25 13:25 13:25 WBC 7.3 (4.5-11.0) X10^3/uL RBC 4.13 (4.0-5.2) X10^6/uL Hgb 12.8 (12.0-16.0) g/dL Hct 38.9 (36-46) % MCV 94.2 (80-100) fL MCH 30.9 (26-34) PG MCHC 32.8 (30-36) % RDW 12.7 (11.6-14.8) % Plt Count 244 (150-400) X10^3/uL Neut % (Auto) 60.7 (50-75) % Lymph % (Auto) 28.3 (25-40) % Titus % (Auto) 6.8 (3-14) % Eos % (Auto) 2.7 (2-4) % Baso % (Auto) 1.5 (0-2) % Neut # (Auto) 4500 (7144-6741) /uL Lymph # (Auto) 2100 (8231-5500) /uL Titus # (Auto) 500 (0-900) /uL Eos # (Auto) 200 (0-450) /uL Baso # (Auto) 100 (0-100) /uL PT 20.4 H (10.1-12.7) SECONDS INR 1.8 H (0.9-1.3) APTT 34 D (26.4-36.2) SECONDS Sodium 134 L (137-145) mmol/L Potassium 4.2 (3.4-5.1) mmol/L Chloride 102 (98-107) mmol/L Carbon Dioxide 28 (22-32) mmol/L BUN 16 (7-17) mg/dL Creatinine 0.98 (0.52-1.04) mg/dL Estimated GFR 55.2 L (>60) mL/min BUN/Creatinine Ratio 16.3 (6-22) Glucose 161 H (80-110) mg/dL Calcium 8.6 (8.4-10.2) mg/dL Total Bilirubin 0.3 (0.2-1.3) mg/dL AST 22 (14-36) IU/L ALT 14 (<35) IU/L Alkaline Phosphatase 50 (38-126) U/L Total Creatine Kinase 45 (30-135) U/L CK-MB (CK-2) TNP CK-MB (CK-2) Rel Index TNP Troponin I < 0.012 (0.01-0.034) ng/mL Total Protein 6.9 (6.3-8.2) g/dL Albumin 3.7 (3.5-5.0) g/dL Globulin 3.2 (1.7-4.1) g/dL Albumin/Globulin Ratio 1.2 (1.0-2.8) Urine Dip Bedside Urine Glucose Negative Bedside Urine Bilirubin - Negative Bedside Urine Ketone - Negative Urine Specific [place] 1.025 Bedside Urine Occult Blood - Negative Bedside Urine pH 6.0 Bedside Urine Protein - Negative Bedside Urine Urobilinogen - Negative Bedside Urine Nitrite - Negative Bedside Urine Leukocytes - Negative Esterase Imaging Data CT scan - head: Radiologist's Impression: [address] [id number] Scan ReportSigned Patient: Rebecca Eugnee R#: [id number]: 4Acct:[id number]/Sex: 74 / FDate of Service: 08/28/20Loc: EDAccession Number: [id number] Procedure: CT head/brain wo con Ordering Provider: Warren Márquez PROCEDURE: CT HEAD/BRAIN WO CON INDICATIONS: hit head on coumadin. TECHNIQUE: Noncontrast 4.5 mm thick angled axial sections acquired from the foramen magnum to the vertex, with coronal and sagittal reformats. For radiation dose reduction, the following was used: automated exposure control, adjustment of mA and/or kV according to patient size. COMPARISON: None. FINDINGS: Image quality: Excellent. CSF spaces: Basal cisterns are patent. No extra-axial fluid collections. The ventricles are symmetric in size and shape. Brain: No intracranial bleeds or masses. There is cerebral volume loss for age, with resultant ventricular and sulcal prominence. There are periventricular and deep white matter chronic small vessel ischemic changes. There is intracranial internal carotid artery atherosclerosis. Skull and face: Calvarium and visualized facial bones appear intact, without suspicious lesions. Sinuses: Visualized sinuses and mastoids are clear. IMPRESSION: No trauma found. No intracranial hemorrhage. Dictated by: Clarke Moralez M.D. on 08/28/2020 at 12:22 Approved by: Clarke Moralez M.D. on 08/28/2020 at 12:23 CT-C spine: Radiologist's Impression: [address] [id number] Scan ReportSigned Patient: Rebecca Eugene R#: [id number]: 4Acct:[id number]/Sex: 74 / FDate of Service: 08/28/20Loc: EDAccession Number: [id number] Procedure: CT cervical spine wo con Ordering Provider: Warren Márquez PROCEDURE: CT CERVICAL SPINE WO CON INDICATIONS: fall hit head on thinners. TECHNIQUE: Noncontrast 3 mm thick sections acquired from the skull base to the T4 level. Sagittal and coronal reformats were then constructed. For radiation dose reduction, the following was used: automated exposure control, adjustment of mA and/or kV according to patient size. COMPARISON: None. FINDINGS: Image quality: Excellent. Bones: No fractures or dislocations. Visualized superior ribs are intact. 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 Soft tissues: Prevertebral soft tissues are normal in thickness. No paravertebral hematomas. No apical pneumothoraces. IMPRESSION: Degenerative changes, but no trauma found. Dictated by: Clarke Moralez M.D. on 08/28/2020 at 12:23 Approved by: Clarke Moralez M.D. on 08/28/2020 at 12:26 Chest x-ray: Radiologist's Impression: [id number] [place] [id number] ReportSigned Patient: Rebecca Eugene JMR#: [id number]: 4Acct:[id number]/Sex: 74 / FDate of Service: 08/28/20Loc: EDAccession Number: [id number] Procedure: XR chest 1V Ordering Provider: Warren Márquez PROCEDURE: XR CHEST 1V INDICATIONS: modified trauma, fall on coumadin TECHNIQUE: One view of the chest was acquired. COMPARISON: [facility], CR, XR CHEST 1V, 01/04/2018, 3:23. FINDINGS: Surgical changes and devices: Surgical clips bilaterally in the thyroid area.. Lungs and pleura: Lungs are clear. No pleural effusions or pneumothorax. Mediastinum: Mediastinal contours appear normal. Heart size is normal. Bones and chest wall: No suspicious bony lesions. Overlying soft tissues appear unremarkable. IMPRESSION: Surgical clips bilaterally in the thyroid area. No trauma found. Dictated by: Clarke Moralez M.D. on 08/28/2020 at 12:41 Approved by: Clarke Moralez M.D. on 08/28/2020 at 12:41 ECG Data Attestation: I personally reviewed and interpreted this ECG as follows: Prior ECG tracings: available for review Interpretation: Sinus rhythm with PACs rate at 68. Normal [place]. MT interval 178, QRS duration 84, QT/QTc 466/[address] and T wave abnormality Prolonged QT MDM Narrative Medical decision making narrative: Modified trauma initiated given patient currently takes Coumadin and she had sustain a fall and hit her head. Rigid C-collar applied upon arrival to ED. Obtained CT test of head and C-spine. EKG sinus rhythm with PAC rate at [address] of head and C-spine without acute findings such as intracranial hemorrhage or fractures. Rigid C-spine collar removed. Labs are assuring. Stable H/H of 12.8/38.9 and no leukocytosis. INR today's 1.8 with PT of 20.4 which may be slightly subtherapeutic. Mild hyponatremia of 134 but normal potassium of 4.2 and she receives potassium replacement therapy. Normal Cr of 0.98 but slightly decreased eGFR of 55.2. Serum glucose mildly elevated to 161. Cardiac enzymes were normal. Although urinary frequency was reported by patient but no indications for urinary tract infection per urine test with negative leuks or nitrites. Patient was ambulated few steps to from bed to wheelchair to use restroom and back to bed. Findings were shared with patient. Patient is able to tolerate po liquid. Advised patient to follow-up with primary care physician and if gait instability persists, patient may require referral to physical therapist for evaluation and treatment return precautions were discussed with patient and she is waiting to be picked up by staff member at [facility]. While patient waiting, she left the room and wheel chair to walk around in stable gait a few times which needed redirection. <Wang Foster, DO - Last Filed: 08/29/20 17:53> Lab Data Labs: Lab Results 08/28/20 08/28/20 08/28/20 Range/Units 13:25 13:25 13:25 WBC 7.3 (4.5-11.0) X10^3/uL RBC 4.13 (4.0-5.2) X10^6/uL Hgb 12.8 (12.0-16.0) g/dL Hct 38.9 (36-46) % MCV 94.2 (80-100) fL MCH 30.9 (26-34) PG MCHC 32.8 (30-36) % RDW 12.7 (11.6-14.8) % Plt Count 244 (150-400) X10^3/uL Neut % (Auto) 60.7 (50-75) % Lymph % (Auto) 28.3 (25-40) % Titus % (Auto) 6.8 (3-14) % Eos % (Auto) 2.7 (2-4) % Baso % (Auto) 1.5 (0-2) % Neut # (Auto) 4500 (2248-9173) /uL Lymph # (Auto) 2100 (8611-7846) /uL Titus # (Auto) 500 (0-900) /uL Eos # (Auto) 200 (0-450) /uL Baso # (Auto) 100 (0-100) /uL PT 20.4 H (10.1-12.7) SECONDS INR 1.8 H (0.9-1.3) APTT 34 D (26.4-36.2) SECONDS Sodium 134 L (137-145) mmol/L Potassium 4.2 (3.4-5.1) mmol/L Chloride 102 (98-107) mmol/L Carbon Dioxide 28 (22-32) mmol/L BUN 16 (7-17) mg/dL Creatinine 0.98 (0.52-1.04) mg/dL Estimated GFR 55.2 L (>60) mL/min BUN/Creatinine Ratio 16.3 (6-22) Glucose 161 H (80-110) mg/dL Calcium 8.6 (8.4-10.2) mg/dL Total Bilirubin 0.3 (0.2-1.3) mg/dL AST 22 (14-36) IU/L ALT 14 (<35) IU/L Alkaline Phosphatase 50 (38-126) U/L Total Creatine Kinase 45 (30-135) U/L CK-MB (CK-2) TNP CK-MB (CK-2) Rel Index TNP Troponin I < 0.012 (0.01-0.034) ng/mL Total Protein 6.9 (6.3-8.2) g/dL Albumin 3.7 (3.5-5.0) g/dL Globulin 3.2 (1.7-4.1) g/dL Albumin/Globulin Ratio 1.2 (1.0-2.8) Urine Dip Bedside Urine Glucose Negative Bedside Urine Bilirubin - Negative Bedside Urine Ketone - Negative Urine Specific [place] 1.025 Bedside Urine Occult Blood - Negative Bedside Urine pH 6.0 Bedside Urine Protein - Negative Bedside Urine Urobilinogen - Negative Bedside Urine Nitrite - Negative Bedside Urine Leukocytes - Negative Esterase Discharge Plan Departure Patient Disposition: Home Clinical Impression: Fall Qualifiers: Encounter type: initial encounter Qualified Code(s): W19.XXXA - Unspecified fall, initial encounter CHI (closed head injury) Qualifiers: Encounter type: initial encounter Qualified Code(s): S09.90XA - Unspecified injury of head, initial encounter Instructions: DI for Closed Head Injury Activity Restrictions/Additional Instructions: You have been diagnosed with [closed head injury after a fall on Coumadin. CT of head, C-spine were unremarkable. Labs are assuring without anemia or hypokalemia. Serum glucose slightly elevated to 161. Normal cardiac enzymes. No signs of urinary tract infection. INR today is 1.8 with PT of 20.4. ]. What to do: *Take your medications as directed. *Follow up with your primary care provider in 2-3 days, call for an appointment. Let them know you were seen in the ED and that we asked you to be seen in follow up. If you continue to have gait problem, you may need a referral to physical therapy. *Return to ED if you have any new, worsening, or concerning symptoms, such as [headache, vision change, unable to tolerate fluids, chest pain, breathing difficulty, or any acute concerns]. Prescriptions: No Action spironolactone [Aldactone] 25 MG tablet 50 mg PO QDAY Qty: 0 RF: 0 potassium chloride 20 mEq Tablet Extended Release 20 meq PO BID Qty: 0 RF: 0 citalopram 20 mg tablet 20 mg PO DAILY RF: 0 estradiol 2 mg tablet 1 tab PO DAILY RF: 0 hydroxyzine pamoate 25 mg capsule 1 - 2 cap PO DAILY RF: 0 metoprolol tartrate 50 mg tablet 1 tab PO BID RF: 0 levothyroxine 150 mcg tablet 1 tab PO DAILY RF: 0 mometasone 0.1 % solution 1 applic Topical BID RF: 0 oxycodone 5 mg tablet 5 mg PO Q6-12H PRN (Reason: Pain, Moderate (4-6)) Qty: 30 RF: 0 Aspir-81 81 mg PO DAILY RF: 0 warfarin 2 mg tablet 2 mg PO DAILY RF: 0 memantine 5 mg tablet 5 mg PO BID RF: 0 Referrals: Sera Phillips MD [Primary Care Provider] - <Wang Foster DO - Last Filed: 08/29/20 17:53> [facility] I was immediately available in the department for consultation. This documentation has been reviewed and I agree with assessment and plan. Supervised by Wang Foster DO
[2020-08-28 13:29] LABS: Add Manual Diff / Slide Review NO; Basophils Absolute Auto 100 /uL (0-100); Basophils Percent Auto 1.5 % (0-2); Eosinophils Absolute Auto 200 /uL (0-450); Eosinophils Percent Auto 2.7 % (2-4); Hematocrit 38.9 % (36-46); Hemoglobin 12.8 g/dL (12.0-16.0); Lymphocytes Absolute Auto 2100 /uL (1100-4500); Lymphocytes Percent Auto 28.3 % (25-40); Mean Corpuscular HGB Conc 32.8 % (30-36); Mean Corpuscular Hemoglobin 30.9 PG (26-34); Mean Corpuscular Volume 94.2 fL (80-100); Monocytes Absolute Auto 500 /uL (0-900); Monocytes Percent Auto 6.8 % (3-14); Neutrophils Absolute Auto 4500 /uL (1500-7000); Neutrophils Percent Auto 60.7 % (50-75); Platelet Count 244 X10^3/uL (150-400); Red Blood Cell Count 4.13 X10^6/uL (4.0-5.2); Red Cell Distribution Width 12.7 % (11.6-14.8); White Blood Cell Count 7.3 X10^3/uL (4.5-11.0)
[2020-08-28 13:38] LABS: INR 1.8 (0.9-1.3); Prothrombin Time 20.4 SECONDS (10.1-12.7)
[2020-08-28 13:41] LABS: PTT Partial Thromboplastin Tim 34 SECONDS (26.4-36.2)
[2020-08-28 13:46] LABS: Alanine Aminotransferase 14 IU/L (<35); Albumin 3.7 g/dL (3.5-5.0); Albumin Globulin Ratio 1.2 (1.0-2.8); Alkaline Phosphatase 50 U/L (38-126); Aspartate Aminotransferase 22 IU/L (14-36); BUN Creatinine Ratio 16.3 (6-22); Bilirubin Total 0.3 mg/dL (0.2-1.3); Blood Urea Nitrogen 16 mg/dL (7-17); Calcium 8.6 mg/dL (8.4-10.2); Carbon Dioxide 28 mmol/L (22-32); Chloride 102 mmol/L (98-107); Creatine Kinase 45 U/L (30-135); Estimated Glomerular Filt Rate 55.2 mL/min (>60); Globulin 3.2 g/dL (1.7-4.1); Glucose 161 mg/dL (80-110); HEMOLYSIS < 15 (0-50); Potassium 4.2 mmol/L (3.4-5.1); Sodium 134 mmol/L (137-145); Total Protein 6.9 g/dL (6.3-8.2)
[2020-08-28 13:58] LABS: Troponin I < 0.012 ng/mL (0.01-0.034)
== END 2020-08-28 15:34 | disposition home or self-care (01) ==
PROVIDERS: Emergency Provider Nurse Practitioner Family; PCP Student in an Organized Health Care Education/Training Program
DX: S09.90XA Unspecified injury of head, initial encounter (principal); R42 Dizziness and giddiness; W19.XXXA Unspecified fall, initial encounter; Z79.01 Long term (current) use of anticoagulants
CPT/HCPCS: 36415; 70450; 71045; 72125; 80053; 81003; 82550; 84484; 85025; 85610; 85730; 93005; 99284

== ENCOUNTER → 2020-08-30 07:22 | Outpatient (ROUT) | payer OTHER, SELFPAY ==
[2018-01-04 09:18] VITALS: BMI 30.2
[2020-08-30 08:18] LABS: Prothrombin Time 22.6 SECONDS (10.1-12.7)
== END ==
PROVIDERS: PCP Student in an Organized Health Care Education/Training Program; Visit Provider Family Medicine
DX: Z79.01 Long term (current) use of anticoagulants (principal)
CPT/HCPCS: 36415; 85610

== ENCOUNTER → 2020-09-06 08:08 | Outpatient (ROUT) | payer OTHER, SELFPAY ==
[2018-01-04 09:18] VITALS: BMI 30.2
[2020-09-06 08:44] LABS: INR 2.1 (0.9-1.3); Prothrombin Time 23.3 SECONDS (10.1-12.7)
== END ==
PROVIDERS: PCP Student in an Organized Health Care Education/Training Program; Visit Provider Nurse Practitioner Family
DX: I82.409 Acute embolism and thrombosis of unspecified deep veins of unspecified lower extremity (principal)
CPT/HCPCS: 36415; 85610

== ENCOUNTER → 2020-09-20 07:52 | Outpatient (ROUT) | payer OTHER, SELFPAY ==
[2018-01-04 09:18] VITALS: BMI 30.2
[2020-09-20 08:23] LABS: Prothrombin Time 22.8 SECONDS (10.1-12.7)
== END ==
PROVIDERS: PCP Student in an Organized Health Care Education/Training Program; Visit Provider Nurse Practitioner Family
DX: Z92.29 Personal history of other drug therapy (principal)
CPT/HCPCS: 36415; 85610

== ENCOUNTER → 2020-10-04 07:57 | Outpatient (ROUT) | payer OTHER, SELFPAY ==
[2018-01-04 09:18] VITALS: BMI 30.2
[2020-10-04 08:49] LABS: INR 2.5 (0.9-1.3)
== END ==
PROVIDERS: PCP Student in an Organized Health Care Education/Training Program; Visit Provider Family Medicine
DX: Z92.29 Personal history of other drug therapy (principal)
CPT/HCPCS: 36415; 85610

== ENCOUNTER → 2020-10-18 07:56 | Outpatient (ROUT) | payer OTHER, SELFPAY ==
[2018-01-04 09:18] VITALS: BMI 30.2
[2020-10-18 09:03] LABS: Prothrombin Time 22.9 SECONDS (10.1-12.7)
== END ==
PROVIDERS: PCP Student in an Organized Health Care Education/Training Program; Visit Provider Family Medicine
DX: Z51.81 Encounter for therapeutic drug level monitoring (principal)
CPT/HCPCS: 36415; 85610

== ENCOUNTER → 2020-11-01 08:19 | Outpatient (ROUT) | payer OTHER, SELFPAY ==
[2018-01-04 09:18] VITALS: BMI 30.2
[2020-11-01 08:52] LABS: Prothrombin Time 23.2 SECONDS (10.1-12.7)
== END ==
PROVIDERS: PCP Student in an Organized Health Care Education/Training Program; Visit Provider Family Medicine
DX: Z92.29 Personal history of other drug therapy (principal)
CPT/HCPCS: 36415; 85610

== ENCOUNTER → 2020-11-15 07:47 | Outpatient (ROUT) | payer OTHER, SELFPAY ==
[2018-01-04 09:18] VITALS: BMI 30.2
[2020-11-15 08:37] LABS: Prothrombin Time 23.5 SECONDS (10.1-12.7)
== END ==
PROVIDERS: PCP Student in an Organized Health Care Education/Training Program; Visit Provider Family Medicine
DX: Z51.81 Encounter for therapeutic drug level monitoring (principal)
CPT/HCPCS: 36415; 85610

== ENCOUNTER → 2020-12-06 07:52 | Outpatient (ROUT) | payer OTHER, SELFPAY ==
[2018-01-04 09:18] VITALS: BMI 30.2
[2020-12-06 08:35] LABS: INR 2.3 (0.9-1.3); Prothrombin Time 26.7 SECONDS (10.1-12.7)
== END ==
PROVIDERS: PCP Student in an Organized Health Care Education/Training Program; Visit Provider Family Medicine
DX: Z92.29 Personal history of other drug therapy (principal)
CPT/HCPCS: 36415; 85610

== ENCOUNTER → 2020-12-27 07:58 | Outpatient (ROUT) | payer OTHER, SELFPAY ==
[2018-01-04 09:18] VITALS: BMI 30.2
[2020-12-27 08:47] LABS: INR 2.1 (0.9-1.3); Prothrombin Time 24.1 SECONDS (10.1-12.7)
== END ==
PROVIDERS: PCP Student in an Organized Health Care Education/Training Program; Visit Provider Family Medicine
DX: I82.409 Acute embolism and thrombosis of unspecified deep veins of unspecified lower extremity (principal)
CPT/HCPCS: 36415; 85610

== ENCOUNTER → 2021-01-17 07:58 | Outpatient (ROUT) | payer OTHER, SELFPAY ==
[2018-01-04 09:18] VITALS: BMI 30.2
[2021-01-17 09:28] LABS: Prothrombin Time 23.1 SECONDS (10.1-12.7)
== END ==
PROVIDERS: PCP Student in an Organized Health Care Education/Training Program; Visit Provider Nurse Practitioner Family
DX: I82.409 Acute embolism and thrombosis of unspecified deep veins of unspecified lower extremity (principal)
CPT/HCPCS: 36415; 85610

== ENCOUNTER → 2021-02-07 08:40 | Outpatient (ROUT) | payer OTHER, SELFPAY ==
[2018-01-04 09:18] VITALS: BMI 30.2
[2021-02-07 09:17] LABS: INR 2.3 (0.9-1.3); Prothrombin Time 26.8 SECONDS (10.1-12.7)
== END ==
PROVIDERS: PCP Student in an Organized Health Care Education/Training Program; Visit Provider Family Medicine
DX: I82.409 Acute embolism and thrombosis of unspecified deep veins of unspecified lower extremity (principal)
CPT/HCPCS: 36415; 85610

== ENCOUNTER → 2021-02-28 08:01 | Outpatient (ROUT) | payer OTHER, SELFPAY ==
[2018-01-04 09:18] VITALS: BMI 30.2
[2021-02-28 09:51] LABS: INR 2.6 (0.9-1.3); Prothrombin Time 29.9 SECONDS (10.1-12.7)
== END ==
PROVIDERS: PCP Student in an Organized Health Care Education/Training Program; Visit Provider Family Medicine
DX: I82.409 Acute embolism and thrombosis of unspecified deep veins of unspecified lower extremity (principal)
CPT/HCPCS: 36415; 85610

== ENCOUNTER → 2021-03-21 07:32 | Outpatient (ROUT) | payer OTHER, SELFPAY ==
[2018-01-04 09:18] VITALS: BMI 30.2
[2021-03-21 08:18] LABS: INR 2.3 (0.9-1.3); Prothrombin Time 26.6 SECONDS (10.1-12.7)
== END ==
PROVIDERS: PCP Student in an Organized Health Care Education/Training Program; Visit Provider Family Medicine
DX: I82.409 Acute embolism and thrombosis of unspecified deep veins of unspecified lower extremity (principal)
CPT/HCPCS: 36415; 85610

== ENCOUNTER → 2021-04-11 08:21 | Outpatient (ROUT) | payer OTHER, SELFPAY ==
[2018-01-04 09:18] VITALS: BMI 30.2
[2021-04-11 08:44] LABS: INR 2.4 (0.9-1.3); Prothrombin Time 28.1 SECONDS (10.1-12.7)
== END ==
PROVIDERS: PCP Student in an Organized Health Care Education/Training Program; Visit Provider Family Medicine
DX: I82.409 Acute embolism and thrombosis of unspecified deep veins of unspecified lower extremity (principal)
CPT/HCPCS: 36415; 85610

== ENCOUNTER → 2021-05-16 09:14 | Outpatient (ROUT) | payer OTHER, SELFPAY ==
[2018-01-04 09:18] VITALS: BMI 30.2
[2021-05-16 09:40] LABS: INR 3.8 (0.9-1.3); Prothrombin Time 44.2 SECONDS (10.1-12.7)
== END ==
PROVIDERS: PCP Student in an Organized Health Care Education/Training Program; Visit Provider Family Medicine
DX: I82.90 Acute embolism and thrombosis of unspecified vein (principal)
CPT/HCPCS: 36415; 85610

== ENCOUNTER → 2021-05-23 08:46 | Outpatient (ROUT) | payer OTHER, SELFPAY ==
[2018-01-04 09:18] VITALS: BMI 30.2
[2021-05-23 10:18] LABS: INR 3.2 (0.9-1.3); Prothrombin Time 37.1 SECONDS (10.1-12.7)
== END ==
PROVIDERS: PCP Student in an Organized Health Care Education/Training Program; Visit Provider Family Medicine
DX: I82.90 Acute embolism and thrombosis of unspecified vein (principal)
CPT/HCPCS: 36415; 85610

== ENCOUNTER → 2021-05-30 08:02 | Outpatient (ROUT) | payer OTHER, SELFPAY ==
[2018-01-04 09:18] VITALS: BMI 30.2
[2021-05-30 08:47] LABS: INR 3.6 (0.9-1.3); Prothrombin Time 41.4 SECONDS (10.1-12.7)
== END ==
PROVIDERS: PCP Student in an Organized Health Care Education/Training Program; Visit Provider Family Medicine
DX: I82.409 Acute embolism and thrombosis of unspecified deep veins of unspecified lower extremity (principal)
CPT/HCPCS: 36415; 85610

== ENCOUNTER → 2021-06-06 07:44 | Outpatient (ROUT) | payer OTHER, SELFPAY ==
[2018-01-04 09:18] VITALS: BMI 30.2
[2021-06-06 08:51] LABS: INR 2.9 (0.9-1.3); Prothrombin Time 33.9 SECONDS (10.1-12.7)
== END ==
PROVIDERS: PCP Student in an Organized Health Care Education/Training Program; Visit Provider Family Medicine
DX: I82.409 Acute embolism and thrombosis of unspecified deep veins of unspecified lower extremity (principal)
CPT/HCPCS: 36415; 85610

== ENCOUNTER → 2021-06-13 08:29 | Outpatient (ROUT) | payer OTHER, SELFPAY ==
[2018-01-04 09:18] VITALS: BMI 30.2
[2021-06-13 09:19] LABS: INR 3.8 (0.9-1.3); Prothrombin Time 44.8 SECONDS (10.1-12.7)
== END ==
PROVIDERS: PCP Student in an Organized Health Care Education/Training Program; Visit Provider Family Medicine
DX: I82.409 Acute embolism and thrombosis of unspecified deep veins of unspecified lower extremity (principal)
CPT/HCPCS: 36415; 85610

== ENCOUNTER → 2021-07-11 08:01 | Outpatient (ROUT) | payer OTHER, SELFPAY ==
[2018-01-04 09:18] VITALS: BMI 30.2
[2021-07-11 10:28] LABS: INR 2.5 (0.9-1.3); Prothrombin Time 29.4 SECONDS (10.1-12.7)
== END ==
PROVIDERS: PCP Student in an Organized Health Care Education/Training Program; Visit Provider Family Medicine
DX: Z86.718 Personal history of other venous thrombosis and embolism (principal)
CPT/HCPCS: 36415; 85610

== ENCOUNTER → 2021-07-25 08:06 | Outpatient (ROUT) | payer OTHER, SELFPAY ==
[2018-01-04 09:18] VITALS: BMI 30.2
[2021-07-25 09:32] LABS: INR 2.8 (0.9-1.3); Prothrombin Time 32.8 SECONDS (10.1-12.7)
== END ==
PROVIDERS: PCP Student in an Organized Health Care Education/Training Program; Visit Provider Family Medicine
DX: I82.409 Acute embolism and thrombosis of unspecified deep veins of unspecified lower extremity (principal)
CPT/HCPCS: 36415; 85610

== ENCOUNTER → 2021-08-02 09:25 | Outpatient (CLI) | payer OTHER, SELFPAY ==
[2018-01-04 09:18] VITALS: BMI 30.2
[2021-08-02 10:35] LABS: INR 3.5 (0.9-1.3); Prothrombin Time 39.9 SECONDS (10.1-12.7)
== END ==
PROVIDERS: PCP Family Medicine; Referring Provider Family Medicine; Visit Provider Family Medicine
DX: R79.1 Abnormal coagulation profile (principal)
CPT/HCPCS: 36415; 85610

== ENCOUNTER → 2021-08-10 13:33 | Outpatient (CLI) | payer OTHER, SELFPAY ==
[2018-01-04 09:18] VITALS: BMI 30.2
[2021-08-10 15:36] LABS: INR 3.3 (0.9-1.3); Prothrombin Time 38.5 SECONDS (10.1-12.7)
== END ==
PROVIDERS: PCP Family Medicine; Referring Provider Family Medicine; Visit Provider Family Medicine
DX: R79.1 Abnormal coagulation profile (principal)
CPT/HCPCS: 36415; 85610

== ENCOUNTER → 2021-09-28 12:01 | Outpatient (ROUT) | payer OTHER, SELFPAY ==
[2018-01-04 09:18] VITALS: BMI 30.2
[2021-09-28 12:09] LABS: INR 3.1 (0.9-1.3); Prothrombin Time 36.2 SECONDS (10.1-12.7)
== END ==
PROVIDERS: PCP Family Medicine; Visit Provider Family Medicine
DX: I80.209 Phlebitis and thrombophlebitis of unspecified deep vessels of unspecified lower extremity (principal); Z79.01 Long term (current) use of anticoagulants
CPT/HCPCS: 85610

== ENCOUNTER → 2021-11-05 20:14 | Outpatient (ROUT) | payer OTHER, SELFPAY ==
[2018-01-04 09:18] VITALS: BMI 30.2
[2021-11-05 20:25] LABS: Appearance Urine UA SL CLOUDY; Bilirubin Urine UA NEGATIVE (NEGATIVE); Color Urine UA YELLOW; Glucose Urine UA NEGATIVE (Negative); Ketones Urine UA NEGATIVE (NEGATIVE); Leukocyte Esterase Urine UA NEGATIVE (NEGATIVE); Nitrite Urine UA POSITIVE (Negative); Occult Blood Urine UA TRACE-LYSED (Negative); Protein Urine UA TRACE (Negative); Specific Gravity Urine UA 1.025 (1.000-1.035); Urobilinogen Urine UA 0.2 E.U./dL (0.2)
[2021-11-05 20:39] LABS: Amorphous Sediment Urine 1+; Bacteria Urine Many (>30); RBC Urine 0-1/HPF (0-5/HPF); Squamous Epithelial Cell Urine 5-10 /HPF (0-5/HPF); WBC Urine 10-30/HPF (0-5/HPF)
[2021-11-05 20:40] LABS: Culture Indicated Urine Specimen Cultured; Mucus Urine 1+ (Negative)
== END ==
PROVIDERS: PCP Family Medicine; Visit Provider Family Medicine
DX: N39.0 Urinary tract infection, site not specified (principal)
CPT/HCPCS: 81001; 87077; 87086; 87186

== ENCOUNTER → 2021-11-12 15:05 | Outpatient (CLI) | payer OTHER, SELFPAY ==
[2018-01-04 09:18] VITALS: BMI 30.2
[2021-11-12 16:33] LABS: Prothrombin Time 22.4 SECONDS (10.1-12.7)
== END ==
PROVIDERS: PCP Family Medicine; Referring Provider Family Medicine; Visit Provider Family Medicine
DX: I10 Essential (primary) hypertension (principal)
CPT/HCPCS: 36415; 85610

== ENCOUNTER → 2021-11-21 07:48 | Outpatient (ROUT) | payer OTHER, SELFPAY ==
[2018-01-04 09:18] VITALS: BMI 30.2
== END ==
PROVIDERS: PCP Family Medicine; Visit Provider Family Medicine
DX: I80.209 Phlebitis and thrombophlebitis of unspecified deep vessels of unspecified lower extremity (principal); Z79.01 Long term (current) use of anticoagulants
CPT/HCPCS: 36415; 85610

== ENCOUNTER → 2021-11-28 10:34 | Outpatient (CLI) | payer OTHER, SELFPAY ==
[2018-01-04 09:18] VITALS: BMI 30.2
[2021-11-28 11:41] LABS: INR 3.6 (0.9-1.3)
== END ==
PROVIDERS: PCP Family Medicine; Referring Provider Family Medicine; Visit Provider Family Medicine
DX: I80.209 Phlebitis and thrombophlebitis of unspecified deep vessels of unspecified lower extremity (principal)
CPT/HCPCS: 36415; 85610

== ENCOUNTER → 2021-12-05 07:26 | Outpatient (ROUT) | payer OTHER, SELFPAY ==
[2018-01-04 09:18] VITALS: BMI 30.2
[2021-12-05 08:00] LABS: INR 4.5 (0.9-1.3)
== END ==
PROVIDERS: PCP Family Medicine; Visit Provider Family Medicine
DX: I80.209 Phlebitis and thrombophlebitis of unspecified deep vessels of unspecified lower extremity (principal)
CPT/HCPCS: 36415; 85610

== ENCOUNTER → 2021-12-12 06:57 | Outpatient (ROUT) | payer OTHER, SELFPAY ==
[2018-01-04 09:18] VITALS: BMI 30.2
[2021-12-12 07:54] LABS: Prothrombin Time 35.6 SECONDS (10.1-12.7)
== END ==
PROVIDERS: PCP Family Medicine; Visit Provider Family Medicine
DX: E78.00 Pure hypercholesterolemia, unspecified (principal); I10 Essential (primary) hypertension
CPT/HCPCS: 36415; 85610

== ENCOUNTER → 2021-12-31 13:11 | Outpatient (CLI) | payer OTHER, SELFPAY ==
[2018-01-04 09:18] VITALS: BMI 30.2
[2021-12-31 14:53] LABS: Prothrombin Time 71.8 SECONDS (10.1-12.7)
== END ==
PROVIDERS: PCP Family Medicine; Referring Provider Family Medicine; Visit Provider Family Medicine
DX: E78.00 Pure hypercholesterolemia, unspecified (principal)
CPT/HCPCS: 36415; 85610

== ENCOUNTER 2022-01-01 09:41 | Emergency (ER) | payer OTHER, SELFPAY ==
[2018-01-04 09:18] VITALS: BMI 30.2
[2022-01-01] VITALS (8 sets, daily range): BP systolic 129–152; BP diastolic 58–73; PULSE 67–91; RESP 18; TEMP 36; O2SAT 94–98
[2022-01-01 10:14] LABS: Appearance Urine UA TURBID; Bilirubin Urine UA NEGATIVE (NEGATIVE); Color Urine UA YELLOW; Glucose Urine UA NEGATIVE (Negative); Ketones Urine UA NEGATIVE (NEGATIVE); Leukocyte Esterase Urine UA 3+ (NEGATIVE); Nitrite Urine UA POSITIVE (Negative); Occult Blood Urine UA 3+ (Negative); Protein Urine UA 2+ (Negative); Specific Gravity Urine UA 1.015 (1.000-1.035); Urobilinogen Urine UA 0.2 E.U./dL (0.2)
[2022-01-01 10:24] LABS: Bacteria Urine Many (>30); Culture Indicated Urine Specimen Cultured; RBC Urine 30-100/HPF (0-5/HPF); Squamous Epithelial Cell Urine 1-5 /HPF (0-5/HPF); WBC Urine >100/HPF (0-5/HPF)
--- NOTE | 2022-01-01 10:51 | ED.AMS ---
HPI - Altered Mental Status General Chief Complaint: Altered Mental Status Stated Complaint: Critical lab results per Time Seen by Provider: 01/01/22 09:51 Source: other Mode of arrival: Wheelchair History of Present Illness HPI narrative: Patient is a 76-year-old female history of atrial fibrillation on Coumadin presenting today with right of complaints. She had an INR checked routinely yesterday as an outpatient is noted to be 6. She lives at a long-term care facility who reports that she was shaking and possibly more confused. Patient is awake alert she has no pain however she is under multiple blankets. She denies any nausea vomiting no chest pain or cough. Related Data Home Medications Medication Instructions Recorded Confirmed potassium chloride 20 mEq 20 meq PO BID ##0 04/23/12 08/28/20 tablet,extended release spironolactone 25 mg tablet 50 mg PO QDAY ##0 04/23/12 08/28/20 (Aldactone) citalopram 20 mg tablet 20 mg PO DAILY 01/04/18 08/28/20 estradiol 2 mg tablet 1 tab PO DAILY 01/04/18 08/28/20 hydroxyzine pamoate 25 mg capsule 1 - 2 cap PO DAILY 01/04/18 01/04/18 levothyroxine 150 mcg tablet 1 tab PO DAILY 01/04/18 08/28/20 metoprolol tartrate 50 mg tablet 1 tab PO BID 01/04/18 08/28/20 mometasone 0.1 % topical solution 1 applic topical BID 01/04/18 01/04/18 Aspir-81 81 mg PO DAILY 08/28/20 08/28/20 memantine 5 mg tablet 5 mg PO BID 08/28/20 08/28/20 warfarin 2 mg tablet 2 mg PO DAILY 08/28/20 08/28/20 Previous Rx's Medication Instructions Recorded oxycodone 5 mg tablet 5 mg PO Q6-12H PRN Pain, Moderate 01/06/18 (4-6) #30 tabs cephalexin 500 mg capsule 500 mg PO BID 7 days #14 caps 01/01/22 Allergies Allergy/AdvReac Type Severity Reaction Status Date / Time etodolac [ETODOLAC] Allergy Unknown hives Verified 01/01/22 10:13 hydromorphone [From Dilaudid] AdvReac facial Verified 01/01/22 10:13 itching, runny nose BEE STINGS Allergy Unknown Uncoded 01/01/22 10:13 Review of Systems Review of Systems Narrative: GENERAL: Denies chills, fatigue, malaise, fever, sweats, travel HEENT: Denies sinus pain, ear pain, sore throat, difficulty swallowing, neck pain RESPIRATORY: Denies dyspnea, cough, wheezing, hemoptysis, sputum. CARDIOVASCULAR: Denies chest pain, palpitations, orthopnea, edema GASTROINTESTINAL: Denies nausea, vomiting, abdominal pain, diarrhea, constipation, melena. : Denies dysuria, frequency, incontinence, hematuria, urinary retention, flank pain. MUSCULOSKELETAL: Denies weakness, joint pain, or bony pain SKIN: No rash, no erythema, no pruritus NEUROLOGIC: Denies weakness, dizziness, headache, numbness, change in speech, confusion PSYCHIATRIC: No concerning psychosocial issues. 12 point review of systems is negative except for those stated above and HPI Patient History Medical History (Updated 01/01/22 @ 14:09 by Carey Key DO) Diverticulosis Hyperlipemia Hypertension Hypokalemia Hypothyroidism Surgical History S/P tendon repair Social History household members: none Smoking Status: Never smoker alcohol intake: current Smoking Status: Never smoker alcohol intake frequency: a few times a week Substance Use Type: does not use Exam Initial Vital Signs Initial Vital Signs: Vital Signs Pulse Oximetry 98 01/01/22 10:03 GENERAL: Alert pleasant 76-year-old and in no acute distress. HEENT: Head atraumatic,EOMI, pupils reactive, face symmetric, moist mucous membranes CARDIOVASCULAR: Regular rate and rhythm without murmurs, rubs or gallops. RESPIRATORY: Breath sounds equal bilaterally, no wheezes rales or rhonchi. ABDOMEN: Soft, nontender. Normoactive bowel sounds all 4 quadrants. No guarding or rebound. EXTREMITIES: Normal range of motion, no clubbing or edema. Neurovascularly intact NEUROLOGICAL: Alert moving all extremities SKIN: Warm, dry, no laceration, no petechiae, no rashes or lesions. Course Orders Ordered: Discontinued Medications Ceftriaxone Sodium 2,000 mg/ (Sodium Chloride) 100 mls @ 200 mls/hr IV NOW ONE Stop: 01/01/22 11:22 Last Infusion: 01/01/22 12:09 Dose: 0 mls/hr Documented By: Admin: 01/01/22 11:35 Dose: 200 mls/hr Documented By: ROXI Phytonadione (Phytonadione (Vit K1) 5 Mg Tablet) 5 mg PO NOW ONE Stop: 01/01/22 12:51 Last Admin: 01/01/22 14:10 Dose: 5 mg Documented By: WARNER Vital Signs Vital signs: Vital Signs - 8 hr 01/01/22 10:05 01/01/22 10:03 01/01/22 11:39 Temperature 96.8 F L Pulse Rate 90 Respiratory Rate 18 Blood Pressure 152/73 H 129/62 Pulse Oximetry 97 98 Oxygen Delivery Method Room Air 01/01/22 11:39 01/01/22 12:00 01/01/22 12:30 Temperature Pulse Rate 76 85 91 H Respiratory Rate Blood Pressure Pulse Oximetry 98 94 96 Oxygen Delivery Method Room Air 01/01/22 13:00 01/01/22 13:30 Temperature Pulse Rate 85 74 Respiratory Rate Blood Pressure Pulse Oximetry 97 96 Oxygen Delivery Method MDM - Altered Mental Status Lab Data Result diagrams: 01/01/22 10:56 01/01/22 10:56 Labs: Lab Results 01/01/22 01/01/22 01/01/22 Range/Units 09:55 10:21 10:56 WBC 13.1 H (4.5-11.0) X10^3/uL RBC 3.85 L (4.0-5.2) X10^6/uL Hgb 11.8 L (12.0-16.0) g/dL Hct 35.2 L (36-46) % MCV 91.4 (80-100) fL MCH 30.8 (26-34) PG MCHC 33.7 (30-36) % RDW 13.2 (11.6-14.8) % Plt Count 325 (150-400) X10^3/uL Neut % (Auto) 75.3 H (50-75) % Lymph % (Auto) 16.8 L (25-40) % [place] % (Auto) 6.4 (3-14) % Eos % (Auto) 0.7 L (2-4) % Baso % (Auto) 0.8 (0-2) % Neut # (Auto) 9900 H (3374-7768) /uL Lymph # (Auto) 2200 (3391-2195) /uL [place] # (Auto) 800 (0-900) /uL Eos # (Auto) 100 (0-450) /uL Baso # (Auto) 100 (0-100) /uL PT (10.1-12.7) SECONDS INR (0.9-1.3) Sodium (137-145) mmol/L Potassium (3.4-5.1) mmol/L Chloride (98-107) mmol/L Carbon Dioxide (22-32) mmol/L BUN (7-17) mg/dL Creatinine (0.52-1.04) mg/dL Estimated GFR (>60) mL/min BUN/Creatinine Ratio (6-22) Glucose (80-110) mg/dL Lactate (0.7-2.1) mmol/L Calcium (8.4-10.2) mg/dL Total Bilirubin (0.2-1.3) mg/dL AST (14-36) IU/L ALT (<35) IU/L Alkaline Phosphatase (38-126) U/L Total Protein (6.3-8.2) g/dL Albumin (3.5-5.0) g/dL Globulin (1.7-4.1) g/dL Albumin/Globulin Ratio (1.0-2.8) Procalcitonin (<0.5) ng/mL Urine Color Yellow Urine Appearance Turbid Urine pH 6.0 (4.5-8.0) Ur Specific Marshall 1.015 (1.000-1.035) Urine Protein 2+ H (Negative) Urine Glucose (UA) Negative (Negative) g/dL Urine Ketones Negative (NEGATIVE) Urine Occult Blood 3+ H (Negative) Urine Nitrate Positive H (Negative) Urine Bilirubin Negative (NEGATIVE) Urine Urobilinogen 0.2 (0.2) E.U./dL Ur Leukocyte Esterase 3+ H (NEGATIVE) Urine RBC 30-100/hpf H (0-5/HPF) Urine WBC >100/hpf H (0-5/HPF) Ur Squamous Epith Cells 1-5 /hpf (0-5/HPF) Urine Bacteria Many (>30) H (None) Ur Culture Indicated? Specimen cultured A. baumannii (PCR) Not detected (Not Detect) Lory albicans (PCR) Not detected (Not Detect) C. glabrata (PCR) Not detected (Not Detect) C. krusei (PCR) Not detected (Not Detect) C. parapsilosis (PCR) Not detected (Not Detect) C. tropicalis (PCR) Not detected (Not Detect) Enterobacteriac sp PCR Not detected (Not Detect) E. cloacae complex PCR Not detected (Not Detect) Enterococcus sp PCR Not detected (Not Detect) E. coli (PCR) Not detected (Not Detect) H. influenzae (PCR) Not detected (Not Detect) Klebsiella oxytoca PCR Not detected (Not Detect) Klebsiella pneumoniae Not detected (Not Detect) List. monocytogenes PCR Not detected (Not Detect) N. meningitidis (PCR) Not detected (Not Detect) Proteus species (PCR) Not detected (Not Detect) Serratia marcescens PCR Not detected (Not Detect) Staphylococcus sp PCR Detected H (Not Detect) Staph aureus (PCR) Not detected (Not Detect) mecA-Methicil Res Gene Detected H (Not Detect) Streptococcus sp PCR Not detected (Not Detect) Group A Strep (PCR) Not detected (Not Detect) Strep agalactiae (PCR) Not detected (Not Detect) Strep pneumoniae (PCR) Not detected (Not Detect) P. aeruginosa (PCR) Not detected (Not Detect) Shanna/B-Vanco Res Genes Not Reportable KPC-Carbap Res Gene PCR Not Reportable 01/01/22 01/01/22 01/01/22 Range/Units 10:56 10:56 10:56 WBC (4.5-11.0) X10^3/uL RBC (4.0-5.2) X10^6/uL Hgb (12.0-16.0) g/dL Hct (36-46) % MCV (80-100) fL MCH (26-34) PG MCHC (30-36) % RDW (11.6-14.8) % Plt Count (150-400) X10^3/uL Neut % (Auto) (50-75) % Lymph % (Auto) (25-40) % [place] % (Auto) (3-14) % Eos % (Auto) (2-4) % Baso % (Auto) (0-2) % Neut # (Auto) (5818-0653) /uL Lymph # (Auto) (6649-9371) /uL [place] # (Auto) (0-900) /uL Eos # (Auto) (0-450) /uL Baso # (Auto) (0-100) /uL PT 81.2 H D (10.1-12.7) SECONDS INR 6.8 H* (0.9-1.3) Sodium 137 (137-145) mmol/L Potassium 4.2 (3.4-5.1) mmol/L Chloride 99 (98-107) mmol/L Carbon Dioxide 28 (22-32) mmol/L BUN 14 (7-17) mg/dL Creatinine 1.40 H (0.52-1.04) mg/dL Estimated GFR 39 L (>60) mL/min BUN/Creatinine Ratio 10.0 (6-22) Glucose 116 H (80-110) mg/dL Lactate 1.9 (0.7-2.1) mmol/L Calcium 8.6 (8.4-10.2) mg/dL Total Bilirubin 0.4 (0.2-1.3) mg/dL AST 19 (14-36) IU/L ALT 16 (<35) IU/L Alkaline Phosphatase 106 (38-126) U/L Total Protein 7.7 (6.3-8.2) g/dL Albumin 3.6 (3.5-5.0) g/dL Globulin 4.1 (1.7-4.1) g/dL Albumin/Globulin Ratio 0.9 L (1.0-2.8) Procalcitonin (<0.5) ng/mL Urine Color Urine Appearance Urine pH (4.5-8.0) Ur Specific Marshall (1.000-1.035) Urine Protein (Negative) Urine Glucose (UA) (Negative) g/dL Urine Ketones (NEGATIVE) Urine Occult Blood (Negative) Urine Nitrate (Negative) Urine Bilirubin (NEGATIVE) Urine Urobilinogen (0.2) E.U./dL Ur Leukocyte Esterase (NEGATIVE) Urine RBC (0-5/HPF) Urine WBC (0-5/HPF) Ur Squamous Epith Cells (0-5/HPF) Urine Bacteria (None) Ur Culture Indicated? A. baumannii (PCR) (Not Detect) Lory albicans (PCR) (Not Detect) C. glabrata (PCR) (Not Detect) C. krusei (PCR) (Not Detect) C. parapsilosis (PCR) (Not Detect) C. tropicalis (PCR) (Not Detect) Enterobacteriac sp PCR (Not Detect) E. cloacae complex PCR (Not Detect) Enterococcus sp PCR (Not Detect) E. coli (PCR) (Not Detect) H. influenzae (PCR) (Not Detect) Klebsiella oxytoca PCR (Not Detect) Klebsiella pneumoniae (Not Detect) List. monocytogenes PCR (Not Detect) N. meningitidis (PCR) (Not Detect) Proteus species (PCR) (Not Detect) Serratia marcescens PCR (Not Detect) Staphylococcus sp PCR (Not Detect) Staph aureus (PCR) (Not Detect) mecA-Methicil Res Gene (Not Detect) Streptococcus sp PCR (Not Detect) Group A Strep (PCR) (Not Detect) Strep agalactiae (PCR) (Not Detect) Strep pneumoniae (PCR) (Not Detect) P. aeruginosa (PCR) (Not Detect) Shanna/B-Vanco Res Genes KPC-Carbap Res Gene PCR 01/01/22 Range/Units 10:56 WBC (4.5-11.0) X10^3/uL RBC (4.0-5.2) X10^6/uL Hgb (12.0-16.0) g/dL Hct (36-46) % MCV (80-100) fL MCH (26-34) PG MCHC (30-36) % RDW (11.6-14.8) % Plt Count (150-400) X10^3/uL Neut % (Auto) (50-75) % Lymph % (Auto) (25-40) % [place] % (Auto) (3-14) % Eos % (Auto) (2-4) % Baso % (Auto) (0-2) % Neut # (Auto) (7852-9803) /uL Lymph # (Auto) (2322-1783) /uL [place] # (Auto) (0-900) /uL Eos # (Auto) (0-450) /uL Baso # (Auto) (0-100) /uL PT (10.1-12.7) SECONDS INR (0.9-1.3) Sodium (137-145) mmol/L Potassium (3.4-5.1) mmol/L Chloride (98-107) mmol/L Carbon Dioxide (22-32) mmol/L BUN (7-17) mg/dL Creatinine (0.52-1.04) mg/dL Estimated GFR (>60) mL/min BUN/Creatinine Ratio (6-22) Glucose (80-110) mg/dL Lactate (0.7-2.1) mmol/L Calcium (8.4-10.2) mg/dL Total Bilirubin (0.2-1.3) mg/dL AST (14-36) IU/L ALT (<35) IU/L Alkaline Phosphatase (38-126) U/L Total Protein (6.3-8.2) g/dL Albumin (3.5-5.0) g/dL Globulin (1.7-4.1) g/dL Albumin/Globulin Ratio (1.0-2.8) Procalcitonin 0.11 (<0.5) ng/mL Urine Color Urine Appearance Urine pH (4.5-8.0) Ur Specific Marshall (1.000-1.035) Urine Protein (Negative) Urine Glucose (UA) (Negative) g/dL Urine Ketones (NEGATIVE) Urine Occult Blood (Negative) Urine Nitrate (Negative) Urine Bilirubin (NEGATIVE) Urine Urobilinogen (0.2) E.U./dL Ur Leukocyte Esterase (NEGATIVE) Urine RBC (0-5/HPF) Urine WBC (0-5/HPF) Ur Squamous Epith Cells (0-5/HPF) Urine Bacteria (None) Ur Culture Indicated? A. baumannii (PCR) (Not Detect) Lory albicans (PCR) (Not Detect) C. glabrata (PCR) (Not Detect) C. krusei (PCR) (Not Detect) C. parapsilosis (PCR) (Not Detect) C. tropicalis (PCR) (Not Detect) Enterobacteriac sp PCR (Not Detect) E. cloacae complex PCR (Not Detect) Enterococcus sp PCR (Not Detect) E. coli (PCR) (Not Detect) H. influenzae (PCR) (Not Detect) Klebsiella oxytoca PCR (Not Detect) Klebsiella pneumoniae (Not Detect) List. monocytogenes PCR (Not Detect) N. meningitidis (PCR) (Not Detect) Proteus species (PCR) (Not Detect) Serratia marcescens PCR (Not Detect) Staphylococcus sp PCR (Not Detect) Staph aureus (PCR) (Not Detect) mecA-Methicil Res Gene (Not Detect) Streptococcus sp PCR (Not Detect) Group A Strep (PCR) (Not Detect) Strep agalactiae (PCR) (Not Detect) Strep pneumoniae (PCR) (Not Detect) P. aeruginosa (PCR) (Not Detect) Shanna/B-Vanco Res Genes KPC-Carbap Res Gene PCR MDM Narrative Medical decision making narrative: Patient is a pleasantly confused 68-year-old female who has a Coumadin coagulopathy. She is also found to have a UTI but overall is not septic. She. 5 mg of vitamin K she is not having any active bleeding. She is given vitamin K because her INR continues to go up. She will be started on antibiotics for her UTI she does not need admission at this time. Creatinine is 1.4 today however her last creatinine was over a year ago and was normal. She has been given IV fluids today. At this time and return close outpatient follow-up. Discharge Plan Departure Patient Disposition: Home Clinical Impression: Acute UTI, Elevated INR Instructions: DI for Urinary Tract Infection (UTI) Activity Restrictions/Additional Instructions: *You have been diagnosed with UTI *What to do: At this time you do have a bladder infection and elevated INR You will need to have your INR held and rechecked on , you were given 5 mg of vitamin K in the emergency department, this should help *Continue to take medications as directed Keflex 500 mg twice a day for 5 days--> SENT TO [facility] *Follow up with your primary care provider in 2-3 days or call [phone] *Return to ER if you should have increasing confusion bleeding [or] any new, worsening or concerning symptoms Prescriptions: New cephalexin 500 mg capsule 500 mg PO BID 7 Days Qty: 14 0RF No Action spironolactone [Aldactone] 25 MG tablet 50 mg PO QDAY Qty: 0 potassium chloride 20 mEq Tablet Extended Release 20 meq PO BID Qty: 0 citalopram 20 mg tablet 20 mg PO DAILY Label Comments: TK 1 T PO QD estradiol 2 mg tablet 1 tab PO DAILY hydroxyzine pamoate 25 mg capsule 1 - 2 cap PO DAILY Label Comments: TK 1 TO 2 CS PO Q 4 TO 6 H PRN FOR PAIN/SPASM metoprolol tartrate 50 mg tablet 1 tab PO BID Label Comments: TK 1 T PO BID FOR BLOOD PRESSURE CONTROL. levothyroxine 150 mcg tablet 1 tab PO DAILY Label Comments: TK 1 T PO QD mometasone 0.1 % solution 1 applic Topical BID Label Comments: APPLY SMALL AMOUNT TO LEFT OUTER EAR BID UTD oxycodone 5 mg tablet 5 mg PO Q6-12H PRN (Reason: Pain, Moderate (4-6)) Qty: 30 0RF Aspir-81 81 mg PO DAILY warfarin 2 mg tablet 2 mg PO DAILY memantine 5 mg tablet 5 mg PO BID Referrals: Arvin Odom MD [Primary Care Provider] - Visit Report Forms: Patient Portal/API
[2022-01-01 11:05] LABS: Add Manual Diff / Slide Review NO; Basophils Absolute Auto 100 /uL (0-100); Basophils Percent Auto 0.8 % (0-2); Eosinophils Absolute Auto 100 /uL (0-450); Eosinophils Percent Auto 0.7 % (2-4); Hematocrit 35.2 % (36-46); Hemoglobin 11.8 g/dL (12.0-16.0); Lymphocytes Absolute Auto 2200 /uL (1100-4500); Lymphocytes Percent Auto 16.8 % (25-40); Mean Corpuscular HGB Conc 33.7 % (30-36); Mean Corpuscular Hemoglobin 30.8 PG (26-34); Mean Corpuscular Volume 91.4 fL (80-100); Monocytes Absolute Auto 800 /uL (0-900); Monocytes Percent Auto 6.4 % (3-14); Neutrophils Absolute Auto 9900 /uL (1500-7000); Neutrophils Percent Auto 75.3 % (50-75); Platelet Count 325 X10^3/uL (150-400); Red Blood Cell Count 3.85 X10^6/uL (4.0-5.2); Red Cell Distribution Width 13.2 % (11.6-14.8); White Blood Cell Count 13.1 X10^3/uL (4.5-11.0)
[2022-01-01 11:20] LABS: Prothrombin Time 81.2 SECONDS (10.1-12.7)
[2022-01-01 11:21] LABS: Alanine Aminotransferase 16 IU/L (<35); Albumin 3.6 g/dL (3.5-5.0); Albumin Globulin Ratio 0.9 (1.0-2.8); Alkaline Phosphatase 106 U/L (38-126); Aspartate Aminotransferase 19 IU/L (14-36); Bilirubin Total 0.4 mg/dL (0.2-1.3); Blood Urea Nitrogen 14 mg/dL (7-17); Calcium 8.6 mg/dL (8.4-10.2); Carbon Dioxide 28 mmol/L (22-32); Chloride 99 mmol/L (98-107); Estimated Glomerular Filt Rate 39 mL/min (>60); Globulin 4.1 g/dL (1.7-4.1); Glucose 116 mg/dL (80-110); HEMOLYSIS < 15 (0-50); Potassium 4.2 mmol/L (3.4-5.1); Sodium 137 mmol/L (137-145); Total Protein 7.7 g/dL (6.3-8.2)
[2022-01-01 11:22] LABS: INR 6.8 (0.9-1.3); Lactate (Lactic Acid) 1.9 mmol/L (0.7-2.1)
[2022-01-01] MEDS: cefTRIAXone 2,000 MG in SODIUM CHLORIDE 0.9% 100 ML 200 MG IV (11:35)
[2022-01-01 11:36] LABS: Procalcitonin 0.11 ng/mL (<0.5)
[2022-01-01] MEDS: PHYTONADIONE (VIT K1) 5 MG TABLET PO (14:10)
[2022-01-02 07:31] LABS: Acinetobacter baumannii Not Detected (Not Detect); Candida albicans Not Detected (Not Detect); Candida glabrata Not Detected (Not Detect); Candida krusei Not Detected (Not Detect); Candida parapsilosis Not Detected (Not Detect); Candida tropicalis Not Detected (Not Detect); E. coli Not Detected (Not Detect); Enterobacter cloacae complex Not Detected (Not Detect); Enterobacteriaceae species Not Detected (Not Detect); Enterococcus species Not Detected (Not Detect); Haemophilus influenzae Not Detected (Not Detect); Listeria monocytogenes Not Detected (Not Detect); Methicillin-resistant gene Detected (Not Detect); Neisseria meningitidis Not Detected (Not Detect); Proteus species Not Detected (Not Detect); Pseudomonas aeruginosa Not Detected (Not Detect); Serratia marcescens Not Detected (Not Detect); Staphylococcus species Detected (Not Detect); Streptococcus agalactiae (Gr B Not Detected (Not Detect); Streptococcus pneumonia Not Detected (Not Detect); Streptococcus pyogenes (Gr A) Not Detected (Not Detect); Streptococcus species Not Detected (Not Detect)
--- NOTE | 2022-01-02 07:38 | PC.NURSE ---
pt discharged 01/01/22 on cephalexin po, notified of positive blood cx x2 bottles for staph species, not aureus. Dr Foster aware 0739 am, positive cx called to er at 0735 am, no further ed action needed pt is on correct meds for bacteria, currently.
== END 2022-01-01 14:24 | disposition home or self-care (01) ==
PROVIDERS: Emergency Provider Emergency Medicine; PCP Family Medicine
DX: N39.0 Urinary tract infection, site not specified (principal); R79.1 Abnormal coagulation profile
CPT/HCPCS: 36415; 80053; 81001; 83605; 84145; 85025; 85610; 87040; 87077; 87086; 87150; 87186; 96365; 99284; J0696

== ENCOUNTER → 2022-01-03 11:49 | Outpatient (CLI) | payer OTHER, SELFPAY ==
[2018-01-04 09:18] VITALS: BMI 30.2
[2022-01-03 14:04] LABS: INR 1.7 (0.9-1.3)
== END ==
PROVIDERS: PCP Family Medicine; Referring Provider Emergency Medicine; Visit Provider Emergency Medicine
DX: E78.00 Pure hypercholesterolemia, unspecified (principal)
CPT/HCPCS: 36415; 85610